=== PATIENT | male | born 1935 | race Caucasian/White ===

== ENCOUNTER 2017-02-22 09:17 | Inpatient (IN) | payer MEDICARE, OTHER, MEDICAID ==
[~2017-02-22] VITALS: Ht 167.6 cm; Wt 65.6 kg
[~2017-02-22 09:17] MED LIST: /QUET25TA OR; /QUET25TA PO; ACET500C PO; ARIC10TA PO; ARIC1TAB2 PO; ASPI1TAB PO; ASPI81TA21 PO; ASPI81TA85 PO; CETI10TA PO; D31000TA PO; DEPA250T2 PO; DESYREL PO; DILT120C82 PO; DILT120T PO; DIVA125C5 PO; DIVA500T3 PO; DONETAB6 PO; DULC5TAB PO; FINA5TAB2 PO; FISH1000 PO; FOLI1TAB4 PO; FOLI1TAB86 PO; KLOR20TA PO; LAMI25TA PO; LAMO25CH PO; LAMO25TA2 PO; LASI40TA PO; LAXA5TAB PO; MYLI40DR PO; NAPR500T2 PO; NIAC500T44 PO; NIAC500T5 PO; OMEP20CA3 PO; PRIL20CA9 PO; SERO1TAB3 PO; SERT-138 PO; SIME80CH PO; SIME80TA PO; SYNT25TA PO; TRAZ50TA11 PO; TRAZ50TA2 PO; TRIAMCINOLONE TOP; TYLE325T5 PO; XANA0.25 PO; XANA0.5T PO; ZYRT10CA PO; [UNRECOGNIZED DRUG - OTHER] TOP
[2017-02-22 11:19] LABS: BASO % 0.5 % (0.0-1.0); EOS # 0.1 K/mm3 (0.0-0.50); EOS % 1.3 % (0.0-3.0); LARGE UNSTAINED CELL # 0.2 K/mm3 (0.0-0.4); LARGE UNSTAINED CELL % 1.8 % (0.0-4.0); LYMPH # 1.4 K/mm3 (1.5-4.5); LYMPH % 14.7 % (24.0-44.0); MEAN CORPUSCULAR HGB CONC 34.1 g/dl (32.0-36.5); MEAN CORPUSCULAR VOLUME 93.8 fl (80.0-96.0); MONO # 0.7 K/mm3 (0.0-0.8); MONO % 7.2 % (0.0-5.0); NEUTROPHILS # 6.9 K/mm3 (1.8-7.7); NEUTROPHILS % 74.5 % (36.0-66.0); PLATELET COUNT, AUTOMATED 241 k/mm3 (150-450); WHITE BLOOD COUNT 9.3 K/mm3 (4.0-10.0)
[2017-02-22 11:39] LABS: ANION GAP 6 MEQ/L (8-16); BLOOD UREA NITROGEN 25 MG/DL (7-18); CALCIUM LEVEL 8.6 MG/DL (8.8-10.2); CARBON DIOXIDE LEVEL 30 MEQ/L (21-32); CHLORIDE LEVEL 106 MEQ/L (98-107); CREATININE FOR GFR 1.04 MG/DL (0.70-1.30); GLOMERULAR FILTRATION RATE > 60.0 (>35); GLUCOSE, FASTING 77 MG/DL (83-110); POTASSIUM SERUM 4.4 MEQ/L (3.5-5.1); SODIUM LEVEL 142 MEQ/L (136-145)
[2017-02-22] MEDS ORDERED: SERO1TAB PO (13:42)
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
[2017-02-22 15:10] VITALS: BP 151/66
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
[2017-02-22] MEDS: OMEPRAZOLE 20 MG CAP PO SCH (21:27)
[2017-02-22] MEDS: QUEtiapine FUMARATE 100 MG TAB PO SCH (21:27)
[2017-02-22 22:00] VITALS: BP 133/78
[2017-02-23 06:00] VITALS: BP 133/63
[2017-02-23 06:13] LABS: MEAN CORPUSCULAR HEMOGLOBIN 32.5 pg (27.0-33.0); MEAN CORPUSCULAR HGB CONC 34.3 g/dl (32.0-36.5); MEAN CORPUSCULAR VOLUME 94.9 fl (80.0-96.0); RED CELL DISTRIBUTION WIDTH 13.1 % (11.5-14.5); WHITE BLOOD COUNT 8.4 K/mm3 (4.0-10.0)
[2017-02-23 06:29] LABS: ALBUMIN 3.1 GM/DL (3.2-5.2); ALBUMIN/GLOBULIN RATIO 0.74 (1.00-1.93); ALKALINE PHOSPHATASE 127 U/L (45-117); ALT/SGPT 19 U/L (12-78); ANION GAP 6 MEQ/L (8-16); AST/SGOT 23 U/L (15-37); BILIRUBIN,TOTAL 0.4 MG/DL (0.2-1.0); BLOOD UREA NITROGEN 19 MG/DL (7-18); CALCIUM LEVEL 8.9 MG/DL (8.8-10.2); CARBON DIOXIDE LEVEL 29 MEQ/L (21-32); CHLORIDE LEVEL 105 MEQ/L (98-107); CREATININE FOR GFR 1.04 MG/DL (0.70-1.30); GLOMERULAR FILTRATION RATE > 60.0 (>35); GLUCOSE, FASTING 84 MG/DL (83-110); POTASSIUM SERUM 4.1 MEQ/L (3.5-5.1); SODIUM LEVEL 140 MEQ/L (136-145); TOTAL PROTEIN 7.3 GM/DL (6.4-8.2)
[2017-02-23] MEDS: FOLIC ACID 1 MG TAB PO SCH (08:35)
[2017-02-23] MEDS: SERTRALINE 100 MG TAB PO SCH (08:35)
[2017-02-23] MEDS: OMEPRAZOLE 20 MG CAP PO SCH ×2 (08:35→20:47)
[2017-02-23] MEDS: VITAMIN D 1,000 INTERNATIONAL UNITS TABLET PO SCH (08:35)
[2017-02-23] MEDS: FUROSEMIDE 40 MG TAB PO SCH (08:35)
[2017-02-23] MEDS: OMEGA-3 1050MG CAPSULE PO SCH (08:35)
[2017-02-23] MEDS: ASPIRIN 81 MG ENTERIC TAB PO SCH (08:36)
[2017-02-23] MEDS: DONEPEZIL 5 MG TAB PO SCH (08:36)
[2017-02-23] MEDS: CETIRIZINE (ZyrTEC) 10 MG TAB PO SCH (08:37)
[2017-02-23] MEDS ORDERED: ENOXAPARIN 30 MG/0.3 ML SYR (J1650) SC ONE (11:00)
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
[2017-02-23 14:00] VITALS: BP 117/59
[2017-02-23] MEDS ORDERED: HALOPERIDOL 2 MG TAB PO PRN (17:00)
[2017-02-23] MEDS ORDERED: BENZTROPINE 1 MG TAB PO PRN (17:00)
[2017-02-23] MEDS ORDERED: HALOPERIDOL 5 MG/ML VIAL (J1630) As Ordered ONE (17:01)
[2017-02-23] MEDS ORDERED: HALOPERIDOL 5 MG/ML VIAL (J1630) IM ONE (17:15)
--- NOTE | 2017-02-23 18:58 | IPNPDOC ---
Text Note Date of Service The patient was seen on 02/23/17. NOTE Event Note: Around 4-5 PM in the afternoon a code Leonardo was called. Patient was found to be missing in the hospital. He was eventually found on the corner of [facility] and [facility] in front of the [facility] building, and was brought back by security to the hospital lobby. He was going to be given IM haldol by nurse in the lobby, however, a code 25 was called and he did not receive the dose then. He was then taken up back to his room by security on [address] where he is given 1 dose of 2 mg PO Haldol around 5:17 PM. Orders were placed for a sitter and for elopement precautions as well as for PRN 2 mg PO haldol q8 hours and for 1 mg IM haldol q12 hours for PRN agitation. For possible extrapyramidal side effect development, we have ordered cogentin 1 mg q8h PRN. Patient now has a sitter and seems to have calmed down. Discussed event and took advice of both Dr. Angelica Granados and Dr. Judy Pringle. Attending Note I, Dr. Granados, have discussed the management plan with Dr. Padgett, and agree with the documentation above. I have asked Dr. Judy Pringle, to assist in the case. She will further direct any other changes after this note. VS,Giovannibone, I+O VS, Fishbone, I+O Laboratory Tests 02/23/17 05:55 Red Blood Count 4.35, Mean Corpuscular Volume 94.9, Mean Corpuscular Hemoglobin 32.5, Mean Corpuscular Hemoglobin Concent 34.3, Red Cell Distribution Width 13.1 , Calcium Level 8.9, Aspartate Amino Transf (AST/SGOT) 23, Alanine Aminotransferase (ALT/SGPT) 19, Alkaline Phosphatase 127 H, Total Bilirubin 0.4 , Total Protein 7.3, Albumin 3.1 L Vital Signs Date Time Temp Pulse Resp B/P (MAP) Pulse Ox O2 Delivery O2 Flow Rate FiO2 02/23/17 14:00 97.9 78 18 117/59 (78) 94 Room Air I&O- Last 24 Hours up to 6 AM 02/23/17 06:00 Intake Total 720 ml Output Total 0 ml Balance 720 ml CROW PADGETT OGME-1 Feb 23, 2017 18:58 ANGELICA GRANADOS MD Feb 24, 2017 06:41
[2017-02-23] MEDS: QUEtiapine FUMARATE 100 MG TAB PO SCH (20:47)
[2017-02-23 22:00] VITALS: BP 110/55
[2017-02-24 06:00] VITALS: BP 137/61
[2017-02-24] MEDS: FOLIC ACID 1 MG TAB PO SCH (09:11)
[2017-02-24] MEDS: CETIRIZINE (ZyrTEC) 10 MG TAB PO SCH (09:11)
[2017-02-24] MEDS: OMEGA-3 1050MG CAPSULE PO SCH (09:11)
[2017-02-24] MEDS: OMEPRAZOLE 20 MG CAP PO SCH ×2 (09:11→20:18)
[2017-02-24] MEDS: ASPIRIN 81 MG ENTERIC TAB PO SCH (09:11)
[2017-02-24] MEDS: DOCUSATE SODIUM 100 MG CAP PO SCH ×2 (09:11→20:18)
[2017-02-24] MEDS: VITAMIN D 1,000 INTERNATIONAL UNITS TABLET PO SCH (09:11)
[2017-02-24] MEDS: FUROSEMIDE 40 MG TAB PO SCH (09:11)
[2017-02-24] MEDS: DONEPEZIL 5 MG TAB PO SCH (09:11)
[2017-02-24] MEDS: ENOXAPARIN 30 MG/0.3 ML SYR (J1650) SC SCH (09:12)
[2017-02-24] MEDS: SERTRALINE 100 MG TAB PO SCH (09:12)
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
[2017-02-24 13:20] VITALS: BP 140/70
[2017-02-24] MEDS: QUEtiapine FUMARATE 100 MG TAB PO SCH (20:18)
[2017-02-24 22:00] VITALS: BP 119/58
[2017-02-25 06:00] VITALS: BP 119/56
[2017-02-25] MEDS ORDERED: HALOPERIDOL 1 MG TAB PO ONE (09:45)
[2017-02-25] MEDS: CETIRIZINE (ZyrTEC) 10 MG TAB PO SCH (09:55)
[2017-02-25] MEDS: SERTRALINE 100 MG TAB PO SCH (09:55)
[2017-02-25] MEDS: ASPIRIN 81 MG ENTERIC TAB PO SCH (09:55)
[2017-02-25] MEDS: DOCUSATE SODIUM 100 MG CAP PO SCH ×2 (09:57→21:51)
[2017-02-25] MEDS: OMEPRAZOLE 20 MG CAP PO SCH ×2 (09:57→21:51)
[2017-02-25] MEDS: FUROSEMIDE 40 MG TAB PO SCH (09:58)
[2017-02-25] MEDS: DONEPEZIL 5 MG TAB PO SCH (09:58)
[2017-02-25] MEDS: VITAMIN D 1,000 INTERNATIONAL UNITS TABLET PO SCH (09:58)
[2017-02-25] MEDS: FOLIC ACID 1 MG TAB PO SCH (09:58)
[2017-02-25] MEDS: OMEGA-3 1050MG CAPSULE PO SCH (09:58)
[2017-02-25] MEDS: ENOXAPARIN 30 MG/0.3 ML SYR (J1650) SC SCH (09:58)
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
[2017-02-25 14:00] VITALS: BP 128/61
[2017-02-25] MEDS: QUEtiapine FUMARATE 100 MG TAB PO SCH (21:51)
[2017-02-25] MEDS: MOM 30ML SUSPENSION UDC PO PRN (21:56)
[2017-02-25 22:00] VITALS: BP 145/66
[2017-02-26 06:00] VITALS: BP 130/72
[2017-02-26] MEDS ORDERED: FLEET ENEMA PR PRN (06:45)
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
[2017-02-26] MEDS: OMEPRAZOLE 20 MG CAP PO SCH ×2 (09:51→21:00)
[2017-02-26] MEDS: SERTRALINE 100 MG TAB PO SCH (09:54)
[2017-02-26] MEDS: FOLIC ACID 1 MG TAB PO SCH (09:54)
[2017-02-26] MEDS: VITAMIN D 1,000 INTERNATIONAL UNITS TABLET PO SCH (09:54)
[2017-02-26] MEDS: ASPIRIN 81 MG ENTERIC TAB PO SCH (09:54)
[2017-02-26] MEDS: DOCUSATE SODIUM 100 MG CAP PO SCH ×2 (09:54→21:00)
[2017-02-26] MEDS: DONEPEZIL 5 MG TAB PO SCH (09:54)
[2017-02-26] MEDS: OMEGA-3 1050MG CAPSULE PO SCH (09:55)
[2017-02-26] MEDS: CETIRIZINE (ZyrTEC) 10 MG TAB PO SCH (09:55)
[2017-02-26] MEDS: FUROSEMIDE 40 MG TAB PO SCH (09:55)
[2017-02-26] MEDS: ENOXAPARIN 30 MG/0.3 ML SYR (J1650) SC SCH (09:55)
[2017-02-26] MEDS: HALOPERIDOL 5 MG/ML VIAL (J1630) IM PRN (17:51)
[2017-02-26] MEDS: QUEtiapine FUMARATE 100 MG TAB PO SCH (21:00)
[2017-02-27 05:48] LABS: MEAN CORPUSCULAR HEMOGLOBIN 31.3 pg (27.0-33.0); MEAN CORPUSCULAR HGB CONC 33.4 g/dl (32.0-36.5); MEAN CORPUSCULAR VOLUME 93.7 fl (80.0-96.0); RED CELL DISTRIBUTION WIDTH 13.4 % (11.5-14.5); WHITE BLOOD COUNT 8.3 K/mm3 (4.0-10.0)
[2017-02-27 06:00] VITALS: BP 137/71
[2017-02-27 06:04] LABS: CALCIUM LEVEL 9.5 MG/DL (8.8-10.2); CREATININE FOR GFR 1.24 MG/DL (0.70-1.30); GLOMERULAR FILTRATION RATE 59.3 (>35); POTASSIUM SERUM 4.5 MEQ/L (3.5-5.1)
[2017-02-27] MEDS: SERTRALINE 100 MG TAB PO SCH (08:02)
[2017-02-27] MEDS: OMEGA-3 1050MG CAPSULE PO SCH (08:02)
[2017-02-27] MEDS: DONEPEZIL 5 MG TAB PO SCH (08:02)
[2017-02-27] MEDS: MOM 30ML SUSPENSION UDC PO PRN (08:02)
[2017-02-27] MEDS: DOCUSATE SODIUM 100 MG CAP PO SCH ×2 (08:03→21:19)
[2017-02-27] MEDS: VITAMIN D 1,000 INTERNATIONAL UNITS TABLET PO SCH (08:03)
[2017-02-27] MEDS: ASPIRIN 81 MG ENTERIC TAB PO SCH (08:03)
[2017-02-27] MEDS: FUROSEMIDE 40 MG TAB PO SCH (08:03)
[2017-02-27] MEDS: CETIRIZINE (ZyrTEC) 10 MG TAB PO SCH (08:03)
[2017-02-27] MEDS: OMEPRAZOLE 20 MG CAP PO SCH ×2 (08:03→21:18)
[2017-02-27] MEDS: FOLIC ACID 1 MG TAB PO SCH (08:03)
[2017-02-27] MEDS: ENOXAPARIN 30 MG/0.3 ML SYR (J1650) SC SCH (08:04)
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
[2017-02-27] MEDS: QUEtiapine FUMARATE 100 MG TAB PO SCH (21:18)
[2017-02-27] MEDS ORDERED: IBUPROFEN 400 MG TAB PO ONE (23:30)
[2017-02-27] MEDS: HALOPERIDOL 2 MG TAB PO PRN (23:46)
[2017-02-28 06:00] VITALS: BP 126/60
[2017-02-28] MEDS: OMEPRAZOLE 20 MG CAP PO SCH ×2 (09:25→20:20)
[2017-02-28] MEDS: FOLIC ACID 1 MG TAB PO SCH (09:25)
[2017-02-28] MEDS: OMEGA-3 1050MG CAPSULE PO SCH (09:25)
[2017-02-28] MEDS: DONEPEZIL 5 MG TAB PO SCH (09:25)
[2017-02-28] MEDS: SERTRALINE 100 MG TAB PO SCH (09:25)
[2017-02-28] MEDS: ENOXAPARIN 30 MG/0.3 ML SYR (J1650) SC SCH (09:25)
[2017-02-28] MEDS: CETIRIZINE (ZyrTEC) 10 MG TAB PO SCH (09:25)
[2017-02-28] MEDS: DOCUSATE SODIUM 100 MG CAP PO SCH ×2 (09:25→20:20)
[2017-02-28] MEDS: ASPIRIN 81 MG ENTERIC TAB PO SCH (09:25)
[2017-02-28] MEDS: VITAMIN D 1,000 INTERNATIONAL UNITS TABLET PO SCH (09:26)
[2017-02-28] MEDS: FUROSEMIDE 40 MG TAB PO SCH (09:26)
[2017-02-28 14:00] VITALS: BP 140/68
[2017-02-28] MEDS: QUEtiapine FUMARATE 100 MG TAB PO SCH (20:20)
[2017-03-01 06:00] VITALS: BP 154/76
[2017-03-01] MEDS: VITAMIN D 1,000 INTERNATIONAL UNITS TABLET PO SCH (09:45)
[2017-03-01] MEDS: OMEPRAZOLE 20 MG CAP PO SCH ×2 (09:45→20:27)
[2017-03-01] MEDS: ENOXAPARIN 30 MG/0.3 ML SYR (J1650) SC SCH (09:45)
[2017-03-01] MEDS: DONEPEZIL 5 MG TAB PO SCH (09:45)
[2017-03-01] MEDS: FOLIC ACID 1 MG TAB PO SCH (09:45)
[2017-03-01] MEDS: FUROSEMIDE 40 MG TAB PO SCH (09:45)
[2017-03-01] MEDS: DOCUSATE SODIUM 100 MG CAP PO SCH ×2 (09:45→20:27)
[2017-03-01] MEDS: SERTRALINE 100 MG TAB PO SCH (09:45)
[2017-03-01] MEDS: CETIRIZINE (ZyrTEC) 10 MG TAB PO SCH (09:45)
[2017-03-01] MEDS: ASPIRIN 81 MG ENTERIC TAB PO SCH (09:45)
[2017-03-01] MEDS: OMEGA-3 1050MG CAPSULE PO SCH (09:45)
[2017-03-01] MEDS: QUEtiapine FUMARATE 100 MG TAB PO SCH (20:21)
[2017-03-01] MEDS: HALOPERIDOL 2 MG TAB PO PRN (20:21)
[2017-03-02 05:30] VITALS: BP 154/70
[2017-03-02 06:33] LABS: MEAN CORPUSCULAR HEMOGLOBIN 31.6 pg (27.0-33.0); MEAN CORPUSCULAR HGB CONC 33.2 g/dl (32.0-36.5); RED CELL DISTRIBUTION WIDTH 13.4 % (11.5-14.5); WHITE BLOOD COUNT 6.8 K/mm3 (4.0-10.0)
[2017-03-02] MEDS: HALOPERIDOL 2 MG TAB PO PRN ×2 (06:45→23:02)
[2017-03-02] MEDS: FUROSEMIDE 40 MG TAB PO SCH (10:19)
[2017-03-02] MEDS: VITAMIN D 1,000 INTERNATIONAL UNITS TABLET PO SCH (10:19)
[2017-03-02] MEDS: OMEGA-3 1050MG CAPSULE PO SCH (10:19)
[2017-03-02] MEDS: OMEPRAZOLE 20 MG CAP PO SCH ×2 (10:19→21:00)
[2017-03-02] MEDS: ENOXAPARIN 30 MG/0.3 ML SYR (J1650) SC SCH (10:19)
[2017-03-02] MEDS: ASPIRIN 81 MG ENTERIC TAB PO SCH (10:20)
[2017-03-02] MEDS: CETIRIZINE (ZyrTEC) 10 MG TAB PO SCH (10:20)
[2017-03-02] MEDS: FOLIC ACID 1 MG TAB PO SCH (10:20)
[2017-03-02] MEDS: DOCUSATE SODIUM 100 MG CAP PO SCH ×2 (10:20→21:00)
[2017-03-02] MEDS: DONEPEZIL 5 MG TAB PO SCH (10:20)
[2017-03-02] MEDS: SERTRALINE 100 MG TAB PO SCH (10:20)
[2017-03-02] MEDS: HALOPERIDOL 5 MG/ML VIAL (J1630) IM PRN ×2 (15:51→23:17)
[2017-03-02] MEDS: QUEtiapine FUMARATE 100 MG TAB PO SCH (23:02)
[2017-03-03] MEDS ORDERED: MILKSUS PO (07:05)
[2017-03-03] MEDS ORDERED: COLA100C5 PO (07:05)
[2017-03-03] MEDS ORDERED: FLEEENE4 PR (07:05)
[2017-03-03] MEDS ORDERED: HALO2TA PO (07:05)
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
[2017-03-03] MEDS: FOLIC ACID 1 MG TAB PO SCH (09:00)
[2017-03-03] MEDS: OMEPRAZOLE 20 MG CAP PO SCH ×2 (09:00→20:56)
[2017-03-03] MEDS: ENOXAPARIN 30 MG/0.3 ML SYR (J1650) SC SCH (09:00)
[2017-03-03] MEDS: VITAMIN D 1,000 INTERNATIONAL UNITS TABLET PO SCH (09:00)
[2017-03-03] MEDS: OMEGA-3 1050MG CAPSULE PO SCH (09:00)
[2017-03-03] MEDS: DOCUSATE SODIUM 100 MG CAP PO SCH ×2 (09:00→20:56)
[2017-03-03] MEDS: DONEPEZIL 5 MG TAB PO SCH (09:52)
[2017-03-03] MEDS: ASPIRIN 81 MG ENTERIC TAB PO SCH (09:52)
[2017-03-03] MEDS: SERTRALINE 100 MG TAB PO SCH (09:53)
[2017-03-03] MEDS: FUROSEMIDE 40 MG TAB PO SCH (09:53)
[2017-03-03] MEDS: CETIRIZINE (ZyrTEC) 10 MG TAB PO SCH (09:53)
[2017-03-03] MEDS: QUEtiapine FUMARATE 100 MG TAB PO SCH (20:56)
[2017-03-04 06:00] VITALS: BP 139/74
[2017-03-04] MEDS: OMEGA-3 1050MG CAPSULE PO SCH (10:43)
[2017-03-04] MEDS: DONEPEZIL 5 MG TAB PO SCH (10:44)
[2017-03-04] MEDS: ASPIRIN 81 MG ENTERIC TAB PO SCH (10:44)
[2017-03-04] MEDS: SERTRALINE 100 MG TAB PO SCH (10:44)
[2017-03-04] MEDS: CETIRIZINE (ZyrTEC) 10 MG TAB PO SCH (10:44)
[2017-03-04] MEDS: FUROSEMIDE 40 MG TAB PO SCH (10:45)
[2017-03-04] MEDS: ENOXAPARIN 30 MG/0.3 ML SYR (J1650) SC SCH (10:45)
[2017-03-04] MEDS: VITAMIN D 1,000 INTERNATIONAL UNITS TABLET PO SCH (10:45)
[2017-03-04] MEDS: FOLIC ACID 1 MG TAB PO SCH (10:45)
[2017-03-04] MEDS: DOCUSATE SODIUM 100 MG CAP PO SCH ×2 (10:45→20:00)
[2017-03-04] MEDS: OMEPRAZOLE 20 MG CAP PO SCH ×2 (10:45→20:00)
[2017-03-04 14:00] VITALS: BP 117/65
[2017-03-04] MEDS: QUEtiapine FUMARATE 100 MG TAB PO SCH (20:00)
[2017-03-05 06:00] VITALS: BP 120/67
[2017-03-05] MEDS: OMEGA-3 1050MG CAPSULE PO SCH (08:10)
[2017-03-05] MEDS: VITAMIN D 1,000 INTERNATIONAL UNITS TABLET PO SCH (08:11)
[2017-03-05] MEDS: FOLIC ACID 1 MG TAB PO SCH (08:11)
[2017-03-05] MEDS: DONEPEZIL 5 MG TAB PO SCH (08:11)
[2017-03-05] MEDS: DOCUSATE SODIUM 100 MG CAP PO SCH ×2 (08:11→20:22)
[2017-03-05] MEDS: FUROSEMIDE 40 MG TAB PO SCH (08:11)
[2017-03-05] MEDS: OMEPRAZOLE 20 MG CAP PO SCH ×2 (08:11→20:23)
[2017-03-05] MEDS: ASPIRIN 81 MG ENTERIC TAB PO SCH (08:12)
[2017-03-05] MEDS: ENOXAPARIN 30 MG/0.3 ML SYR (J1650) SC SCH (08:12)
[2017-03-05] MEDS: CETIRIZINE (ZyrTEC) 10 MG TAB PO SCH (08:12)
[2017-03-05] MEDS: SERTRALINE 100 MG TAB PO SCH (08:12)
[2017-03-05] MEDS: QUEtiapine FUMARATE 100 MG TAB PO SCH (20:23)
[2017-03-06 06:00] VITALS: BP 113/66
[2017-03-06 06:01] LABS: MEAN CORPUSCULAR HEMOGLOBIN 32.9 pg (27.0-33.0); MEAN CORPUSCULAR HGB CONC 34.9 g/dl (32.0-36.5); MEAN CORPUSCULAR VOLUME 94.5 fl (80.0-96.0); RED CELL DISTRIBUTION WIDTH 13.2 % (11.5-14.5); WHITE BLOOD COUNT 6.5 K/mm3 (4.0-10.0)
[2017-03-06 06:34] LABS: ANION GAP 4 MEQ/L (8-16); BLOOD UREA NITROGEN 30 MG/DL (7-18); CALCIUM LEVEL 9.3 MG/DL (8.8-10.2); CARBON DIOXIDE LEVEL 35 MEQ/L (21-32); CHLORIDE LEVEL 103 MEQ/L (98-107); GLOMERULAR FILTRATION RATE > 60.0 (>35); GLUCOSE, FASTING 88 MG/DL (83-110); POTASSIUM SERUM 4.1 MEQ/L (3.5-5.1); SODIUM LEVEL 142 MEQ/L (136-145)
[2017-03-06] MEDS: ENOXAPARIN 30 MG/0.3 ML SYR (J1650) SC SCH (08:09)
[2017-03-06] MEDS: FOLIC ACID 1 MG TAB PO SCH (08:09)
[2017-03-06] MEDS: VITAMIN D 1,000 INTERNATIONAL UNITS TABLET PO SCH (08:09)
[2017-03-06] MEDS: OMEGA-3 1050MG CAPSULE PO SCH (08:09)
[2017-03-06] MEDS: DOCUSATE SODIUM 100 MG CAP PO SCH ×2 (08:09→20:54)
[2017-03-06] MEDS: SERTRALINE 100 MG TAB PO SCH (08:09)
[2017-03-06] MEDS: FUROSEMIDE 40 MG TAB PO SCH (08:09)
[2017-03-06] MEDS: ASPIRIN 81 MG ENTERIC TAB PO SCH (08:10)
[2017-03-06] MEDS: DONEPEZIL 5 MG TAB PO SCH (08:10)
[2017-03-06] MEDS: CETIRIZINE (ZyrTEC) 10 MG TAB PO SCH (08:10)
[2017-03-06] MEDS: OMEPRAZOLE 20 MG CAP PO SCH ×2 (08:10→20:54)
[2017-03-06] MEDS: QUEtiapine FUMARATE 100 MG TAB PO SCH (20:54)
[2017-03-07 06:00] VITALS: BP 128/62
[2017-03-07] MEDS: DONEPEZIL 5 MG TAB PO SCH (08:03)
[2017-03-07] MEDS: CETIRIZINE (ZyrTEC) 10 MG TAB PO SCH (08:03)
[2017-03-07] MEDS: VITAMIN D 1,000 INTERNATIONAL UNITS TABLET PO SCH (08:03)
[2017-03-07] MEDS: FOLIC ACID 1 MG TAB PO SCH (08:03)
[2017-03-07] MEDS: SERTRALINE 100 MG TAB PO SCH (08:03)
[2017-03-07] MEDS: ASPIRIN 81 MG ENTERIC TAB PO SCH (08:03)
[2017-03-07] MEDS: DOCUSATE SODIUM 100 MG CAP PO SCH ×2 (08:03→21:00)
[2017-03-07] MEDS: ENOXAPARIN 30 MG/0.3 ML SYR (J1650) SC SCH (08:03)
[2017-03-07] MEDS: FUROSEMIDE 40 MG TAB PO SCH (08:04)
[2017-03-07] MEDS: OMEPRAZOLE 20 MG CAP PO SCH ×2 (08:04→21:00)
[2017-03-07] MEDS: OMEGA-3 1050MG CAPSULE PO SCH (08:04)
[2017-03-07] MEDS: HALOPERIDOL 5 MG/ML VIAL (J1630) IM PRN (12:09)
[2017-03-07] MEDS ORDERED: LORazepam 2 MG/ML VIAL (J2060) As Ordered ONE (12:31)
[2017-03-07] MEDS ORDERED: LORazepam 2 MG/ML VIAL (J2060) IM PRN (12:45)
[2017-03-07] MEDS ORDERED: BENZ-52 PO (13:29)
[2017-03-07] MEDS ORDERED: ATIV2INJ2 IM (13:29)
[2017-03-07] MEDS: QUEtiapine FUMARATE 100 MG TAB PO SCH (21:37)
[2017-03-08 08:00] VITALS: BP 135/70
[2017-03-08] MEDS: CETIRIZINE (ZyrTEC) 10 MG TAB PO SCH (08:03)
[2017-03-08] MEDS: VITAMIN D 1,000 INTERNATIONAL UNITS TABLET PO SCH (08:03)
[2017-03-08] MEDS: DOCUSATE SODIUM 100 MG CAP PO SCH ×2 (08:03→21:00)
[2017-03-08] MEDS: OMEGA-3 1050MG CAPSULE PO SCH (08:03)
[2017-03-08] MEDS: FOLIC ACID 1 MG TAB PO SCH (08:03)
[2017-03-08] MEDS: ASPIRIN 81 MG ENTERIC TAB PO SCH (08:03)
[2017-03-08] MEDS: FUROSEMIDE 40 MG TAB PO SCH (08:04)
[2017-03-08] MEDS: DONEPEZIL 5 MG TAB PO SCH (08:04)
[2017-03-08] MEDS: SERTRALINE 100 MG TAB PO SCH (08:04)
[2017-03-08] MEDS: OMEPRAZOLE 20 MG CAP PO SCH ×2 (08:04→21:00)
[2017-03-08] MEDS: ENOXAPARIN 30 MG/0.3 ML SYR (J1650) SC SCH (08:10)
[2017-03-08] MEDS: HALOPERIDOL 2 MG TAB PO PRN ×2 (13:51→21:10)
[2017-03-08 14:00] VITALS: BP 135/89
[2017-03-08] MEDS: QUEtiapine FUMARATE 100 MG TAB PO SCH (21:00)
[2017-03-08] MEDS ORDERED: HALOPERIDOL 2 MG TAB PO ONE (23:15)
[2017-03-09 06:00] VITALS: BP 134/63
[2017-03-09 07:05] LABS: MEAN CORPUSCULAR HEMOGLOBIN 31.9 pg (27.0-33.0); MEAN CORPUSCULAR HGB CONC 33.5 g/dl (32.0-36.5); MEAN CORPUSCULAR VOLUME 95.1 fl (80.0-96.0); RED CELL DISTRIBUTION WIDTH 12.9 % (11.5-14.5); WHITE BLOOD COUNT 5.9 K/mm3 (4.0-10.0)
[2017-03-09] MEDS: FUROSEMIDE 40 MG TAB PO SCH (08:55)
[2017-03-09] MEDS: OMEPRAZOLE 20 MG CAP PO SCH ×3 (08:55→20:18)
[2017-03-09] MEDS: VITAMIN D 1,000 INTERNATIONAL UNITS TABLET PO SCH (08:55)
[2017-03-09] MEDS: ASPIRIN 81 MG ENTERIC TAB PO SCH (08:55)
[2017-03-09] MEDS: CETIRIZINE (ZyrTEC) 10 MG TAB PO SCH (08:55)
[2017-03-09] MEDS: DOCUSATE SODIUM 100 MG CAP PO SCH ×3 (08:55→20:18)
[2017-03-09] MEDS: FOLIC ACID 1 MG TAB PO SCH (08:55)
[2017-03-09] MEDS: OMEGA-3 1050MG CAPSULE PO SCH (08:55)
[2017-03-09] MEDS: SERTRALINE 100 MG TAB PO SCH (08:56)
[2017-03-09] MEDS: DONEPEZIL 5 MG TAB PO SCH (08:56)
[2017-03-09] MEDS: ENOXAPARIN 30 MG/0.3 ML SYR (J1650) SC SCH (08:56)
[2017-03-09] MEDS: HALOPERIDOL 2 MG TAB PO PRN ×2 (12:35→18:40)
[2017-03-09] MEDS: QUEtiapine FUMARATE 100 MG TAB PO SCH ×2 (20:13→20:19)
[2017-03-10 06:00] VITALS: BP 134/71
[2017-03-10] MEDS: OMEGA-3 1050MG CAPSULE PO SCH (08:38)
[2017-03-10] MEDS: ASPIRIN 81 MG ENTERIC TAB PO SCH (08:38)
[2017-03-10] MEDS: SERTRALINE 100 MG TAB PO SCH (08:38)
[2017-03-10] MEDS: CETIRIZINE (ZyrTEC) 10 MG TAB PO SCH (08:38)
[2017-03-10] MEDS: OMEPRAZOLE 20 MG CAP PO SCH ×2 (08:38→21:39)
[2017-03-10] MEDS: DOCUSATE SODIUM 100 MG CAP PO SCH (08:39)
[2017-03-10] MEDS: HALOPERIDOL 2 MG TAB PO PRN (08:39)
[2017-03-10] MEDS: DONEPEZIL 5 MG TAB PO SCH (08:39)
[2017-03-10] MEDS: VITAMIN D 1,000 INTERNATIONAL UNITS TABLET PO SCH (08:39)
[2017-03-10] MEDS: FOLIC ACID 1 MG TAB PO SCH (08:39)
[2017-03-10] MEDS: ENOXAPARIN 30 MG/0.3 ML SYR (J1650) SC SCH (08:40)
[2017-03-10] MEDS: FUROSEMIDE 40 MG TAB PO SCH (08:40)
--- NOTE | 2017-03-10 11:35 | IPNPDOC ---
Date Seen The patient was seen on 03/10/17. Progress Note SUBJECTIVE: Pateint comfortable this am , says feels constipated and having hard stool, denied any chills or fever , denied any pain , denied any nausea or vomiting . complains of difficulty in vision. still trying to leave the floor to go to [place]. OBJECTIVE PHYSICAL EXAMINATION: VITAL SIGNS: Please see below. GENERAL: awake , alert confused. HEENT: normocephalic and atraumatic, moist mucus membranes, anicteric eyes. CARDIOVASCULAR: S1, S2 normal , no rub murmur or gallop. rate regular. RESPIRATORY: bilateral vesicular breath sounds, clear to auscultation. ABDOMINAL: soft , nontender, normal bowel sounds EXTREMITIES: no edema, normal pulses. NEUROLOGICAL:No focal neuro deficits. PSYCHOLOGICAL: dementia with intermittent agitation. LABORATORY DATA: Please see below. MICROBIOLOGY: Please see below. Assessment and plan: 1. Baseline dementia with behavioral issues. Work up for causes of acute delirium like infection has been negative. continue cogentin, donepezil, seroquel, seroquel, haldol and ativan im prn. 2. History of reflux, Wilcox esophagus. Continue with proton pump inhibitor ( PPI). 3. History of cataracts. The patient is requesting to be seen by [facility] intranet specialist physician who he does not remember. 4. History of depression and anxiety, chronic. 5. Hypertension. Controlled. On diltiazem and lasix. 6. History coronary artery disease. On aspirin, fish oil, and Lasix. 7. Allergic rhinitis. On Zyrtec. 8. Deep vein thrombosis (DVT) prophylaxis with Lovenox. VS, I&O, 24H, Fishbone Vital Signs/I&O Vital Signs Date Time Temp Pulse Resp B/P (MAP) Pulse Ox O2 Delivery O2 Flow Rate FiO2 03/10/17 08:39 63 134/71 03/10/17 06:00 97.2 16 91 Room Air I&O- Last 24 Hours up to 6 AM 03/10/17 06:00 Intake Total 1560 ml Balance 1560 ml KARSON CHURCH MD Mar 10, 2017 11:34
[2017-03-10] MEDS: QUEtiapine FUMARATE 100 MG TAB PO SCH (21:39)
[2017-03-11 06:00] VITALS: BP 135/75
[2017-03-11] MEDS: SERTRALINE 100 MG TAB PO SCH (09:57)
[2017-03-11] MEDS: ENOXAPARIN 30 MG/0.3 ML SYR (J1650) SC SCH (09:57)
[2017-03-11] MEDS: OMEPRAZOLE 20 MG CAP PO SCH ×2 (09:57→20:19)
[2017-03-11] MEDS: SENOKOT S TAB PO SCH (09:57)
[2017-03-11] MEDS: CETIRIZINE (ZyrTEC) 10 MG TAB PO SCH (09:57)
[2017-03-11] MEDS: ASPIRIN 81 MG ENTERIC TAB PO SCH (10:00)
[2017-03-11] MEDS: DONEPEZIL 5 MG TAB PO SCH (10:00)
[2017-03-11] MEDS: VITAMIN D 1,000 INTERNATIONAL UNITS TABLET PO SCH (10:01)
[2017-03-11] MEDS: FUROSEMIDE 40 MG TAB PO SCH (10:01)
[2017-03-11] MEDS: FOLIC ACID 1 MG TAB PO SCH (10:01)
[2017-03-11] MEDS: OMEGA-3 1050MG CAPSULE PO SCH (10:01)
[2017-03-11] MEDS: MOM 30ML SUSPENSION UDC PO PRN (20:19)
[2017-03-11] MEDS: QUEtiapine FUMARATE 100 MG TAB PO SCH (20:19)
[2017-03-12 06:00] VITALS: BP 106/57
[2017-03-12] MEDS: SENOKOT S TAB PO SCH (09:46)
[2017-03-12] MEDS: DONEPEZIL 5 MG TAB PO SCH (09:46)
[2017-03-12] MEDS: FOLIC ACID 1 MG TAB PO SCH (09:46)
[2017-03-12] MEDS: CETIRIZINE (ZyrTEC) 10 MG TAB PO SCH (09:46)
[2017-03-12] MEDS: ASPIRIN 81 MG ENTERIC TAB PO SCH (09:46)
[2017-03-12] MEDS: SERTRALINE 100 MG TAB PO SCH (09:46)
[2017-03-12] MEDS: VITAMIN D 1,000 INTERNATIONAL UNITS TABLET PO SCH (09:46)
[2017-03-12] MEDS: FUROSEMIDE 40 MG TAB PO SCH (09:46)
[2017-03-12] MEDS: OMEGA-3 1050MG CAPSULE PO SCH (09:47)
[2017-03-12] MEDS: ENOXAPARIN 30 MG/0.3 ML SYR (J1650) SC SCH (09:47)
[2017-03-12] MEDS: OMEPRAZOLE 20 MG CAP PO SCH ×2 (09:47→21:00)
[2017-03-12] MEDS: QUEtiapine FUMARATE 100 MG TAB PO SCH (21:00)
[2017-03-13 06:00] VITALS: BP 139/67
[2017-03-13 06:38] LABS: MEAN CORPUSCULAR HGB CONC 33.7 g/dl (32.0-36.5); MEAN CORPUSCULAR VOLUME 94.9 fl (80.0-96.0); RED CELL DISTRIBUTION WIDTH 13.1 % (11.5-14.5); WHITE BLOOD COUNT 8.1 K/mm3 (4.0-10.0)
[2017-03-13 07:08] LABS: ANION GAP 6 MEQ/L (8-16); BLOOD UREA NITROGEN 28 MG/DL (7-18); CALCIUM LEVEL 9.1 MG/DL (8.8-10.2); CARBON DIOXIDE LEVEL 30 MEQ/L (21-32); CHLORIDE LEVEL 105 MEQ/L (98-107); CREATININE FOR GFR 1.08 MG/DL (0.70-1.30); GLOMERULAR FILTRATION RATE > 60.0 (>35); GLUCOSE, FASTING 93 MG/DL (83-110); POTASSIUM SERUM 3.9 MEQ/L (3.5-5.1); SODIUM LEVEL 141 MEQ/L (136-145)
[2017-03-13] MEDS: HALOPERIDOL 2 MG TAB PO PRN (08:40)
[2017-03-13] MEDS: SENOKOT S TAB PO SCH (08:41)
[2017-03-13] MEDS: ASPIRIN 81 MG ENTERIC TAB PO SCH (08:41)
[2017-03-13] MEDS: OMEPRAZOLE 20 MG CAP PO SCH ×2 (08:41→22:40)
[2017-03-13] MEDS: FOLIC ACID 1 MG TAB PO SCH (08:42)
[2017-03-13] MEDS: FUROSEMIDE 40 MG TAB PO SCH (08:42)
[2017-03-13] MEDS: VITAMIN D 1,000 INTERNATIONAL UNITS TABLET PO SCH (08:43)
[2017-03-13] MEDS: OMEGA-3 1050MG CAPSULE PO SCH (08:43)
[2017-03-13] MEDS: CETIRIZINE (ZyrTEC) 10 MG TAB PO SCH (08:43)
[2017-03-13] MEDS: SERTRALINE 100 MG TAB PO SCH (08:44)
[2017-03-13] MEDS: DONEPEZIL 5 MG TAB PO SCH (08:44)
[2017-03-13] MEDS: ENOXAPARIN 30 MG/0.3 ML SYR (J1650) SC SCH (11:15)
[2017-03-13] MEDS: HALOPERIDOL 2 MG TAB PO SCH ×2 (21:00→22:39)
[2017-03-13] MEDS: QUEtiapine FUMARATE 100 MG TAB PO SCH (22:40)
[2017-03-14 06:00] VITALS: BP 133/63
[2017-03-14] MEDS: FUROSEMIDE 40 MG TAB PO SCH (10:51)
[2017-03-14] MEDS: CETIRIZINE (ZyrTEC) 10 MG TAB PO SCH (10:51)
[2017-03-14] MEDS: SENOKOT S TAB PO SCH (10:51)
[2017-03-14] MEDS: SERTRALINE 100 MG TAB PO SCH (10:51)
[2017-03-14] MEDS: OMEPRAZOLE 20 MG CAP PO SCH ×2 (10:51→22:41)
[2017-03-14] MEDS: FOLIC ACID 1 MG TAB PO SCH (10:51)
[2017-03-14] MEDS: ASPIRIN 81 MG ENTERIC TAB PO SCH (10:52)
[2017-03-14] MEDS: OMEGA-3 1050MG CAPSULE PO SCH (10:52)
[2017-03-14] MEDS: DONEPEZIL 5 MG TAB PO SCH (10:53)
[2017-03-14] MEDS: VITAMIN D 1,000 INTERNATIONAL UNITS TABLET PO SCH (10:53)
[2017-03-14] MEDS: HALOPERIDOL 2 MG TAB PO SCH (10:54)
[2017-03-14] MEDS: ENOXAPARIN 30 MG/0.3 ML SYR (J1650) SC SCH (10:54)
[2017-03-14] MEDS: QUEtiapine FUMARATE 100 MG TAB PO SCH (22:41)
[2017-03-15 06:00] VITALS: BP 131/77
[2017-03-15] MEDS: OMEGA-3 1050MG CAPSULE PO SCH (09:58)
[2017-03-15] MEDS: CETIRIZINE (ZyrTEC) 10 MG TAB PO SCH (09:59)
[2017-03-15] MEDS: SENOKOT S TAB PO SCH (09:59)
[2017-03-15] MEDS: SERTRALINE 100 MG TAB PO SCH (09:59)
[2017-03-15] MEDS: HALOPERIDOL 2 MG TAB PO SCH ×2 (09:59→22:20)
[2017-03-15] MEDS: VITAMIN D 1,000 INTERNATIONAL UNITS TABLET PO SCH (09:59)
[2017-03-15] MEDS: DONEPEZIL 5 MG TAB PO SCH (09:59)
[2017-03-15] MEDS: OMEPRAZOLE 20 MG CAP PO SCH ×2 (09:59→22:20)
[2017-03-15] MEDS: FOLIC ACID 1 MG TAB PO SCH (10:00)
[2017-03-15] MEDS: FUROSEMIDE 40 MG TAB PO SCH (10:00)
[2017-03-15] MEDS: ENOXAPARIN 30 MG/0.3 ML SYR (J1650) SC SCH (10:00)
[2017-03-15] MEDS: ASPIRIN 81 MG ENTERIC TAB PO SCH (10:00)
--- NOTE | 2017-03-15 15:51 | REP ---
HISTORY: Myosis. COMPARISON: 06/02/2016, which showed small bilateral cystic hygromas measuring 7 mm maximal on the right and 3 mm maximal on the left. The ventricles and sulci are unchanged consistent with microvascular ischemic disease with volume loss and atrophy. 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 There is on evidence of an acute intracranial hemorrhage. There is no mass or mass effect. The suprasellar cisterns are open and unchanged. Chronic calcifications again seen in the basal ganglia and falx, status quo. There is no evidence of an acute intracranial hemorrhagic or nonhemorrhagic event. IMPRESSION: Chronic changes as described above. Consider a contrast enhanced brain CT for further evaluation. Signed by Ed Harden DO 03/15/2017 04:41 P
--- NOTE | 2017-03-15 17:32 | IPNPDOC ---
Subjective Date Seen The patient was seen on 03/15/17. Subjective Chief Complaint/HPI The patient is a 81-year-old male admitted with a reason for visit of Dementia With Behavioral Disturbance. Events since last encounter pt seen and examined, no complains but nurse notified me to of pinpoint pupil on the left side. Objective Physical Examination General Exam: Positive: No Acute Distress ENT Exam: Positive: Atraumatic, Mucous membr. moist/pink, Pharynx Normal Chest Exam: Positive: Clear to auscultation, Normal air movement Abdomen Exam: Positive: Normal bowel sounds, Soft, Negative: Tenderness, Hepatospenomegaly Extremity Exam: Positive: Normal pulses, Negative: Clubbing, Cyanosis, Edema Assessment /Plan Problems (1) Pinpoint pupils Status: Acute Problem Text: * will check Ct scan of head to rule out stroke * no other focal deficits (2) Dementia Status: Chronic Response to Treatment: Stable (3) Gait instability Status: Chronic Response to Treatment: Stable (4) Hospital admission due to social situation Status: Chronic Response to Treatment: Stable Plan/VTE VTE Prophylaxis Ordered?: Yes VS, I&O, 24H, Fishbone Vital Signs/I&O Vital Signs Date Time Temp Pulse Resp B/P (MAP) Pulse Ox O2 Delivery O2 Flow Rate FiO2 03/15/17 09:59 70 131/77 03/15/17 09:00 Room Air 03/15/17 06:00 97.2 18 92 I&O- Last 24 Hours up to 6 AM 03/15/17 06:00 Intake Total 1320 ml Balance 1320 ml KRISHNA SMITH DO Mar 15, 2017 17:32
[2017-03-15] MEDS: QUEtiapine FUMARATE 100 MG TAB PO SCH (22:20)
[2017-03-16 06:00] VITALS: BP 114/57
[2017-03-16 06:09] LABS: MEAN CORPUSCULAR HEMOGLOBIN 31.9 pg (27.0-33.0); MEAN CORPUSCULAR HGB CONC 34.1 g/dl (32.0-36.5); MEAN CORPUSCULAR VOLUME 93.6 fl (80.0-96.0); RED CELL DISTRIBUTION WIDTH 13.1 % (11.5-14.5); WHITE BLOOD COUNT 8.7 K/mm3 (4.0-10.0)
[2017-03-16] MEDS: DONEPEZIL 5 MG TAB PO SCH (08:44)
[2017-03-16] MEDS: OMEGA-3 1050MG CAPSULE PO SCH (08:44)
[2017-03-16] MEDS: VITAMIN D 1,000 INTERNATIONAL UNITS TABLET PO SCH (08:44)
[2017-03-16] MEDS: ENOXAPARIN 30 MG/0.3 ML SYR (J1650) SC SCH (08:44)
[2017-03-16] MEDS: SENOKOT S TAB PO SCH (08:45)
[2017-03-16] MEDS: FUROSEMIDE 40 MG TAB PO SCH (08:45)
[2017-03-16] MEDS: FOLIC ACID 1 MG TAB PO SCH (08:45)
[2017-03-16] MEDS: ASPIRIN 81 MG ENTERIC TAB PO SCH (08:45)
[2017-03-16] MEDS: SERTRALINE 100 MG TAB PO SCH (08:45)
[2017-03-16] MEDS: HALOPERIDOL 2 MG TAB PO SCH ×2 (08:45→21:06)
[2017-03-16] MEDS: CETIRIZINE (ZyrTEC) 10 MG TAB PO SCH (08:45)
[2017-03-16] MEDS: OMEPRAZOLE 20 MG CAP PO SCH ×2 (08:45→21:06)
[2017-03-16] MEDS: QUEtiapine FUMARATE 100 MG TAB PO SCH (21:05)
[2017-03-17 06:00] VITALS: BP 110/63
[2017-03-17] MEDS: ASPIRIN 81 MG ENTERIC TAB PO SCH (09:19)
[2017-03-17] MEDS: OMEGA-3 1050MG CAPSULE PO SCH (09:19)
[2017-03-17] MEDS: DONEPEZIL 5 MG TAB PO SCH (09:19)
[2017-03-17] MEDS: FOLIC ACID 1 MG TAB PO SCH (09:19)
[2017-03-17] MEDS: SENOKOT S TAB PO SCH (09:19)
[2017-03-17] MEDS: SERTRALINE 100 MG TAB PO SCH (09:19)
[2017-03-17] MEDS: HALOPERIDOL 2 MG TAB PO SCH ×2 (09:19→20:55)
[2017-03-17] MEDS: CETIRIZINE (ZyrTEC) 10 MG TAB PO SCH (09:20)
[2017-03-17] MEDS: FUROSEMIDE 40 MG TAB PO SCH (09:20)
[2017-03-17] MEDS: ENOXAPARIN 30 MG/0.3 ML SYR (J1650) SC SCH (09:20)
[2017-03-17] MEDS: VITAMIN D 1,000 INTERNATIONAL UNITS TABLET PO SCH (09:20)
[2017-03-17] MEDS: OMEPRAZOLE 20 MG CAP PO SCH ×2 (09:20→20:55)
[2017-03-17] MEDS: QUEtiapine FUMARATE 100 MG TAB PO SCH (20:55)
[2017-03-18 06:00] VITALS: BP 135/58
[2017-03-18] MEDS: DONEPEZIL 5 MG TAB PO SCH (08:02)
[2017-03-18] MEDS: SERTRALINE 100 MG TAB PO SCH (08:02)
[2017-03-18] MEDS: HALOPERIDOL 2 MG TAB PO SCH ×2 (08:02→20:23)
[2017-03-18] MEDS: ASPIRIN 81 MG ENTERIC TAB PO SCH (08:02)
[2017-03-18] MEDS: FOLIC ACID 1 MG TAB PO SCH (08:02)
[2017-03-18] MEDS: OMEGA-3 1050MG CAPSULE PO SCH (08:02)
[2017-03-18] MEDS: ENOXAPARIN 30 MG/0.3 ML SYR (J1650) SC SCH (08:02)
[2017-03-18] MEDS: VITAMIN D 1,000 INTERNATIONAL UNITS TABLET PO SCH (08:03)
[2017-03-18] MEDS: SENOKOT S TAB PO SCH (08:03)
[2017-03-18] MEDS: OMEPRAZOLE 20 MG CAP PO SCH ×2 (08:03→20:25)
[2017-03-18] MEDS: FUROSEMIDE 40 MG TAB PO SCH (08:03)
[2017-03-18] MEDS: CETIRIZINE (ZyrTEC) 10 MG TAB PO SCH (08:15)
[2017-03-18] MEDS: QUEtiapine FUMARATE 100 MG TAB PO SCH (20:23)
[2017-03-19 06:00] VITALS: BP 115/58
[2017-03-19] MEDS: CETIRIZINE (ZyrTEC) 10 MG TAB PO SCH (09:31)
[2017-03-19] MEDS: DONEPEZIL 5 MG TAB PO SCH (09:31)
[2017-03-19] MEDS: OMEGA-3 1050MG CAPSULE PO SCH (09:31)
[2017-03-19] MEDS: ASPIRIN 81 MG ENTERIC TAB PO SCH (09:31)
[2017-03-19] MEDS: SENOKOT S TAB PO SCH (09:32)
[2017-03-19] MEDS: FOLIC ACID 1 MG TAB PO SCH (09:32)
[2017-03-19] MEDS: FUROSEMIDE 40 MG TAB PO SCH (09:32)
[2017-03-19] MEDS: OMEPRAZOLE 20 MG CAP PO SCH ×2 (09:33→20:25)
[2017-03-19] MEDS: SERTRALINE 100 MG TAB PO SCH (09:33)
[2017-03-19] MEDS: HALOPERIDOL 2 MG TAB PO SCH ×2 (09:33→20:25)
[2017-03-19] MEDS: VITAMIN D 1,000 INTERNATIONAL UNITS TABLET PO SCH (09:33)
[2017-03-19] MEDS: ENOXAPARIN 30 MG/0.3 ML SYR (J1650) SC SCH (09:34)
[2017-03-19] MEDS: QUEtiapine FUMARATE 100 MG TAB PO SCH (20:25)
[2017-03-19 20:40] VITALS: BP 148/88
[2017-03-20 06:00] VITALS: BP 119/58
[2017-03-20 06:18] LABS: MEAN CORPUSCULAR HEMOGLOBIN 31.7 pg (27.0-33.0); MEAN CORPUSCULAR HGB CONC 33.2 g/dl (32.0-36.5); MEAN CORPUSCULAR VOLUME 95.5 fl (80.0-96.0); RED CELL DISTRIBUTION WIDTH 13.3 % (11.5-14.5); WHITE BLOOD COUNT 8.4 K/mm3 (4.0-10.0)
[2017-03-20 06:41] LABS: ANION GAP 6 MEQ/L (8-16); BLOOD UREA NITROGEN 26 MG/DL (7-18); CARBON DIOXIDE LEVEL 33 MEQ/L (21-32); CHLORIDE LEVEL 105 MEQ/L (98-107); CREATININE FOR GFR 1.16 MG/DL (0.70-1.30); GLOMERULAR FILTRATION RATE > 60.0 (>35); GLUCOSE, FASTING 84 MG/DL (83-110); POTASSIUM SERUM 4.3 MEQ/L (3.5-5.1); SODIUM LEVEL 144 MEQ/L (136-145)
[2017-03-20] MEDS: ENOXAPARIN 30 MG/0.3 ML SYR (J1650) SC SCH (09:59)
[2017-03-20] MEDS: FOLIC ACID 1 MG TAB PO SCH (10:00)
[2017-03-20] MEDS: SENOKOT S TAB PO SCH (10:00)
[2017-03-20] MEDS: DONEPEZIL 5 MG TAB PO SCH (10:00)
[2017-03-20] MEDS: FUROSEMIDE 40 MG TAB PO SCH (10:00)
[2017-03-20] MEDS: SERTRALINE 100 MG TAB PO SCH (10:00)
[2017-03-20] MEDS: OMEPRAZOLE 20 MG CAP PO SCH ×2 (10:00→20:10)
[2017-03-20] MEDS: CETIRIZINE (ZyrTEC) 10 MG TAB PO SCH (10:00)
[2017-03-20] MEDS: ASPIRIN 81 MG ENTERIC TAB PO SCH (10:00)
[2017-03-20] MEDS: VITAMIN D 1,000 INTERNATIONAL UNITS TABLET PO SCH (10:00)
[2017-03-20] MEDS: OMEGA-3 1050MG CAPSULE PO SCH (10:01)
[2017-03-20] MEDS: HALOPERIDOL 2 MG TAB PO SCH ×2 (10:09→20:10)
[2017-03-20] MEDS: QUEtiapine FUMARATE 100 MG TAB PO SCH (20:10)
[2017-03-21 06:00] VITALS: BP 101/54
[2017-03-21] MEDS: SERTRALINE 100 MG TAB PO SCH (09:50)
[2017-03-21] MEDS: OMEPRAZOLE 20 MG CAP PO SCH ×2 (09:50→20:19)
[2017-03-21] MEDS: ASPIRIN 81 MG ENTERIC TAB PO SCH (09:50)
[2017-03-21] MEDS: OMEGA-3 1050MG CAPSULE PO SCH (09:50)
[2017-03-21] MEDS: FOLIC ACID 1 MG TAB PO SCH (09:50)
[2017-03-21] MEDS: CETIRIZINE (ZyrTEC) 10 MG TAB PO SCH (09:50)
[2017-03-21] MEDS: HALOPERIDOL 2 MG TAB PO SCH ×2 (09:50→20:19)
[2017-03-21] MEDS: DONEPEZIL 5 MG TAB PO SCH (09:50)
[2017-03-21] MEDS: FUROSEMIDE 40 MG TAB PO SCH (09:50)
[2017-03-21] MEDS: SENOKOT S TAB PO SCH (09:50)
[2017-03-21] MEDS: ENOXAPARIN 30 MG/0.3 ML SYR (J1650) SC SCH (09:53)
[2017-03-21] MEDS: VITAMIN D 1,000 INTERNATIONAL UNITS TABLET PO SCH (09:53)
--- NOTE | 2017-03-21 13:28 | IPNPDOC ---
Subjective Date Seen The patient was seen on 03/21/17. Subjective Chief Complaint/HPI The patient is a 81-year-old male admitted with a reason for visit of Dementia With Behavioral Disturbance. General: Denies: Chills, Night Sweats Constitutional: Denies: Chills, Fever Eyes: Denies: Pain ENT: Denies: Head Aches, Ear Pain Skin: Denies: Rash, Lesions Pulmonary: Denies: Dyspnea, Cough Cardiovascular: Denies: Chest Pain, Palpitations Gastrointestinal: Denies: Nausea, Vomiting Genitourinary: Denies: Dysuria, Frequency Hematologic: Denies: Bruising, Bleeding Excessively Objective Physical Examination General Exam: Positive: Cooperative, No Acute Distress ENT Exam: Positive: Atraumatic, Mucous membr. moist/pink, Pharynx Normal Chest Exam: Positive: Clear to auscultation, Normal air movement Heart Exam: Positive: Rate Normal, Normal S1, Normal S2 Abdomen Exam: Positive: Normal bowel sounds, Soft, Negative: Tenderness, Hepatospenomegaly Extremity Exam: Positive: Normal pulses, Negative: Clubbing, Cyanosis, Edema Assessment /Plan Plan/VTE VTE Prophylaxis Ordered?: Yes Plan Baseline dementia with behavioral issues. No reversible infectious/neurologic/metabolic etiology noted Continue cogentin, donepezil, sertraline, seroquel, haldol and ativan History of reflux, Wilcox esophagus Continue with proton pump inhibitor (PPI). History of depression and anxiety, chronic. Cont meds as noted above Hypertension, stable Cont diltiazem and lasix. History coronary artery disease On aspirin, fish oil, and Lasix. Not on BB, Statin?--Will defer this to PCP, outpatient work up Allergic rhinitis Cont Zyrtec. Deep vein thrombosis (DVT) prophylaxis Cont Lovenox. Disposition-we will follow up with PFS regarding further delineation of disposition. VS, I&O, 24H, Fishbone Vital Signs/I&O Vital Signs Date Time Temp Pulse Resp B/P (MAP) Pulse Ox O2 Delivery O2 Flow Rate FiO2 03/21/17 10:00 Room Air 03/21/17 09:53 68 118/64 03/21/17 06:00 98.0 20 95 I&O- Last 24 Hours up to 6 AM 03/21/17 06:00 Intake Total 660 ml Output Total 0 ml Balance 660 ml CROW KEY MD Mar 21, 2017 13:28
[2017-03-21] MEDS: QUEtiapine FUMARATE 100 MG TAB PO SCH (20:19)
[2017-03-22 06:00] VITALS: BP 110/60
[2017-03-22] MEDS: FOLIC ACID 1 MG TAB PO SCH (09:28)
[2017-03-22] MEDS: VITAMIN D 1,000 INTERNATIONAL UNITS TABLET PO SCH (09:28)
[2017-03-22] MEDS: ASPIRIN 81 MG ENTERIC TAB PO SCH (09:28)
[2017-03-22] MEDS: FUROSEMIDE 40 MG TAB PO SCH (09:28)
[2017-03-22] MEDS: OMEGA-3 1050MG CAPSULE PO SCH (09:28)
[2017-03-22] MEDS: CETIRIZINE (ZyrTEC) 10 MG TAB PO SCH (09:28)
[2017-03-22] MEDS: SERTRALINE 100 MG TAB PO SCH (09:28)
[2017-03-22] MEDS: DONEPEZIL 5 MG TAB PO SCH (09:28)
[2017-03-22] MEDS: HALOPERIDOL 2 MG TAB PO SCH ×2 (09:28→20:26)
[2017-03-22] MEDS: OMEPRAZOLE 20 MG CAP PO SCH ×2 (09:28→20:26)
[2017-03-22] MEDS: SENOKOT S TAB PO SCH (09:29)
[2017-03-22] MEDS: ENOXAPARIN 30 MG/0.3 ML SYR (J1650) SC SCH (09:29)
[2017-03-22] MEDS: QUEtiapine FUMARATE 100 MG TAB PO SCH (20:26)
[2017-03-23 05:59] LABS: MEAN CORPUSCULAR HEMOGLOBIN 32.2 pg (27.0-33.0); MEAN CORPUSCULAR HGB CONC 34.7 g/dl (32.0-36.5); MEAN CORPUSCULAR VOLUME 92.9 fl (80.0-96.0); RED CELL DISTRIBUTION WIDTH 13.1 % (11.5-14.5); WHITE BLOOD COUNT 7.6 K/mm3 (4.0-10.0)
[2017-03-23 06:00] VITALS: BP 118/65
[2017-03-23] MEDS: OMEGA-3 1050MG CAPSULE PO SCH (08:39)
[2017-03-23] MEDS: SENOKOT S TAB PO SCH (08:39)
[2017-03-23] MEDS: FUROSEMIDE 40 MG TAB PO SCH (08:39)
[2017-03-23] MEDS: HALOPERIDOL 2 MG TAB PO SCH ×2 (08:39→20:22)
[2017-03-23] MEDS: OMEPRAZOLE 20 MG CAP PO SCH ×2 (08:40→20:22)
[2017-03-23] MEDS: SERTRALINE 100 MG TAB PO SCH (08:40)
[2017-03-23] MEDS: ASPIRIN 81 MG ENTERIC TAB PO SCH (08:40)
[2017-03-23] MEDS: VITAMIN D 1,000 INTERNATIONAL UNITS TABLET PO SCH (08:40)
[2017-03-23] MEDS: FOLIC ACID 1 MG TAB PO SCH (08:40)
[2017-03-23] MEDS: DONEPEZIL 5 MG TAB PO SCH (08:40)
[2017-03-23] MEDS: CETIRIZINE (ZyrTEC) 10 MG TAB PO SCH (08:40)
[2017-03-23] MEDS: ENOXAPARIN 30 MG/0.3 ML SYR (J1650) SC SCH (08:41)
[2017-03-23] MEDS: HALOPERIDOL 2 MG TAB PO PRN (15:42)
[2017-03-23] MEDS: QUEtiapine FUMARATE 100 MG TAB PO SCH (20:22)
[2017-03-24 06:00] VITALS: BP 131/64
[2017-03-24] MEDS: SERTRALINE 100 MG TAB PO SCH (08:44)
[2017-03-24] MEDS: DONEPEZIL 5 MG TAB PO SCH (08:44)
[2017-03-24] MEDS: VITAMIN D 1,000 INTERNATIONAL UNITS TABLET PO SCH (08:44)
[2017-03-24] MEDS: ASPIRIN 81 MG ENTERIC TAB PO SCH (08:44)
[2017-03-24] MEDS: FOLIC ACID 1 MG TAB PO SCH (08:44)
[2017-03-24] MEDS: OMEPRAZOLE 20 MG CAP PO SCH ×2 (08:44→20:53)
[2017-03-24] MEDS: CETIRIZINE (ZyrTEC) 10 MG TAB PO SCH (08:44)
[2017-03-24] MEDS: SENOKOT S TAB PO SCH (08:44)
[2017-03-24] MEDS: OMEGA-3 1050MG CAPSULE PO SCH (08:44)
[2017-03-24] MEDS: FUROSEMIDE 40 MG TAB PO SCH (08:45)
[2017-03-24] MEDS: HALOPERIDOL 2 MG TAB PO SCH ×2 (08:45→20:54)
[2017-03-24] MEDS: ENOXAPARIN 30 MG/0.3 ML SYR (J1650) SC SCH (08:45)
[2017-03-24] MEDS: QUEtiapine FUMARATE 100 MG TAB PO SCH (20:54)
[2017-03-25 06:30] VITALS: BP 126/58
[2017-03-25] MEDS: SENOKOT S TAB PO SCH (08:20)
[2017-03-25] MEDS: HALOPERIDOL 2 MG TAB PO SCH ×2 (08:20→20:13)
[2017-03-25] MEDS: OMEPRAZOLE 20 MG CAP PO SCH ×2 (08:21→20:12)
[2017-03-25] MEDS: FOLIC ACID 1 MG TAB PO SCH (08:21)
[2017-03-25] MEDS: OMEGA-3 1050MG CAPSULE PO SCH (08:21)
[2017-03-25] MEDS: ASPIRIN 81 MG ENTERIC TAB PO SCH (08:21)
[2017-03-25] MEDS: FUROSEMIDE 40 MG TAB PO SCH (08:21)
[2017-03-25] MEDS: DONEPEZIL 5 MG TAB PO SCH (08:21)
[2017-03-25] MEDS: SERTRALINE 100 MG TAB PO SCH (08:21)
[2017-03-25] MEDS: CETIRIZINE (ZyrTEC) 10 MG TAB PO SCH (08:21)
[2017-03-25] MEDS: VITAMIN D 1,000 INTERNATIONAL UNITS TABLET PO SCH (08:21)
[2017-03-25] MEDS: ENOXAPARIN 30 MG/0.3 ML SYR (J1650) SC SCH (08:22)
[2017-03-25] MEDS: MOM 30ML SUSPENSION UDC PO PRN (10:56)
[2017-03-25] MEDS: QUEtiapine FUMARATE 100 MG TAB PO SCH (20:12)
[2017-03-25] MEDS: POLYVINYL ALCOHOL OPHTH SOLN 15 ML(LIQUITEARS) OU PRN (21:25)
[2017-03-26 06:00] VITALS: BP 124/65
[2017-03-26] MEDS: HALOPERIDOL 2 MG TAB PO SCH ×2 (08:06→20:46)
[2017-03-26] MEDS: ASPIRIN 81 MG ENTERIC TAB PO SCH (08:07)
[2017-03-26] MEDS: FOLIC ACID 1 MG TAB PO SCH (08:07)
[2017-03-26] MEDS: OMEGA-3 1050MG CAPSULE PO SCH (08:07)
[2017-03-26] MEDS: OMEPRAZOLE 20 MG CAP PO SCH ×2 (08:07→20:46)
[2017-03-26] MEDS: VITAMIN D 1,000 INTERNATIONAL UNITS TABLET PO SCH (08:07)
[2017-03-26] MEDS: SERTRALINE 100 MG TAB PO SCH (08:07)
[2017-03-26] MEDS: FUROSEMIDE 40 MG TAB PO SCH (08:07)
[2017-03-26] MEDS: DONEPEZIL 5 MG TAB PO SCH (08:07)
[2017-03-26] MEDS: CETIRIZINE (ZyrTEC) 10 MG TAB PO SCH (08:07)
[2017-03-26] MEDS: SENOKOT S TAB PO SCH (08:08)
[2017-03-26] MEDS: ENOXAPARIN 30 MG/0.3 ML SYR (J1650) SC SCH (08:08)
[2017-03-26] MEDS: QUEtiapine FUMARATE 100 MG TAB PO SCH (20:46)
[2017-03-27 06:00] VITALS: BP 125/61
[2017-03-27] MEDS: VITAMIN D 1,000 INTERNATIONAL UNITS TABLET PO SCH (08:15)
[2017-03-27] MEDS: FOLIC ACID 1 MG TAB PO SCH (08:15)
[2017-03-27] MEDS: CETIRIZINE (ZyrTEC) 10 MG TAB PO SCH (08:15)
[2017-03-27] MEDS: DONEPEZIL 5 MG TAB PO SCH (08:15)
[2017-03-27] MEDS: FUROSEMIDE 40 MG TAB PO SCH (08:15)
[2017-03-27] MEDS: SERTRALINE 100 MG TAB PO SCH (08:16)
[2017-03-27] MEDS: HALOPERIDOL 2 MG TAB PO SCH ×2 (08:16→21:27)
[2017-03-27] MEDS: OMEGA-3 1050MG CAPSULE PO SCH (08:16)
[2017-03-27] MEDS: OMEPRAZOLE 20 MG CAP PO SCH ×2 (08:16→21:27)
[2017-03-27] MEDS: ASPIRIN 81 MG ENTERIC TAB PO SCH (08:16)
[2017-03-27] MEDS: ENOXAPARIN 30 MG/0.3 ML SYR (J1650) SC SCH (08:16)
[2017-03-27] MEDS: SENOKOT S TAB PO SCH (08:16)
[2017-03-27] MEDS: QUEtiapine FUMARATE 100 MG TAB PO SCH (21:27)
[2017-03-28 06:00] VITALS: BP 142/66
[2017-03-28] MEDS: SERTRALINE 100 MG TAB PO SCH (08:40)
[2017-03-28] MEDS: VITAMIN D 1,000 INTERNATIONAL UNITS TABLET PO SCH (08:40)
[2017-03-28] MEDS: SENOKOT S TAB PO SCH (08:40)
[2017-03-28] MEDS: CETIRIZINE (ZyrTEC) 10 MG TAB PO SCH (08:40)
[2017-03-28] MEDS: FOLIC ACID 1 MG TAB PO SCH (08:40)
[2017-03-28] MEDS: HALOPERIDOL 2 MG TAB PO SCH ×2 (08:40→20:27)
[2017-03-28] MEDS: OMEGA-3 1050MG CAPSULE PO SCH (08:40)
[2017-03-28] MEDS: DONEPEZIL 5 MG TAB PO SCH (08:41)
[2017-03-28] MEDS: ASPIRIN 81 MG ENTERIC TAB PO SCH (08:41)
[2017-03-28] MEDS: FUROSEMIDE 40 MG TAB PO SCH (08:41)
[2017-03-28] MEDS: OMEPRAZOLE 20 MG CAP PO SCH ×2 (08:41→20:27)
[2017-03-28] MEDS: ENOXAPARIN 30 MG/0.3 ML SYR (J1650) SC SCH (08:42)
[2017-03-28] MEDS: QUEtiapine FUMARATE 100 MG TAB PO SCH (20:27)
[2017-03-29 06:00] VITALS: BP 141/72
[2017-03-29] MEDS: VITAMIN D 1,000 INTERNATIONAL UNITS TABLET PO SCH (09:52)
[2017-03-29] MEDS: ASPIRIN 81 MG ENTERIC TAB PO SCH (09:52)
[2017-03-29] MEDS: SERTRALINE 100 MG TAB PO SCH (09:52)
[2017-03-29] MEDS: OMEPRAZOLE 20 MG CAP PO SCH ×2 (09:52→21:49)
[2017-03-29] MEDS: FUROSEMIDE 40 MG TAB PO SCH (09:52)
[2017-03-29] MEDS: SENOKOT S TAB PO SCH (09:52)
[2017-03-29] MEDS: OMEGA-3 1050MG CAPSULE PO SCH (09:52)
[2017-03-29] MEDS: CETIRIZINE (ZyrTEC) 10 MG TAB PO SCH (09:52)
[2017-03-29] MEDS: DONEPEZIL 5 MG TAB PO SCH (09:52)
[2017-03-29] MEDS: FOLIC ACID 1 MG TAB PO SCH (09:52)
[2017-03-29] MEDS: HALOPERIDOL 2 MG TAB PO SCH ×2 (09:53→21:49)
[2017-03-29] MEDS: ENOXAPARIN 30 MG/0.3 ML SYR (J1650) SC SCH (09:53)
[2017-03-29] MEDS: QUEtiapine FUMARATE 100 MG TAB PO SCH (21:49)
[2017-03-30 06:00] VITALS: BP 125/60
[2017-03-30] MEDS: OMEPRAZOLE 20 MG CAP PO SCH ×2 (08:51→20:00)
[2017-03-30] MEDS: SERTRALINE 100 MG TAB PO SCH (08:51)
[2017-03-30] MEDS: ASPIRIN 81 MG ENTERIC TAB PO SCH (08:51)
[2017-03-30] MEDS: SENOKOT S TAB PO SCH (08:51)
[2017-03-30] MEDS: FOLIC ACID 1 MG TAB PO SCH (08:51)
[2017-03-30] MEDS: HALOPERIDOL 2 MG TAB PO SCH ×2 (08:51→20:00)
[2017-03-30] MEDS: FUROSEMIDE 40 MG TAB PO SCH (08:51)
[2017-03-30] MEDS: CETIRIZINE (ZyrTEC) 10 MG TAB PO SCH (08:51)
[2017-03-30] MEDS: OMEGA-3 1050MG CAPSULE PO SCH (08:51)
[2017-03-30] MEDS: VITAMIN D 1,000 INTERNATIONAL UNITS TABLET PO SCH (08:51)
[2017-03-30] MEDS: DONEPEZIL 5 MG TAB PO SCH (08:51)
[2017-03-30] MEDS: ENOXAPARIN 30 MG/0.3 ML SYR (J1650) SC SCH (08:52)
[2017-03-30] MEDS: QUEtiapine FUMARATE 100 MG TAB PO SCH (20:00)
[2017-03-31 06:00] VITALS: BP 133/64
[2017-03-31] MEDS: FOLIC ACID 1 MG TAB PO SCH (09:34)
[2017-03-31] MEDS: VITAMIN D 1,000 INTERNATIONAL UNITS TABLET PO SCH (09:34)
[2017-03-31] MEDS: ENOXAPARIN 30 MG/0.3 ML SYR (J1650) SC SCH (09:34)
[2017-03-31] MEDS: ASPIRIN 81 MG ENTERIC TAB PO SCH (09:34)
[2017-03-31] MEDS: OMEPRAZOLE 20 MG CAP PO SCH ×2 (09:34→21:22)
[2017-03-31] MEDS: OMEGA-3 1050MG CAPSULE PO SCH (09:34)
[2017-03-31] MEDS: DONEPEZIL 5 MG TAB PO SCH (09:34)
[2017-03-31] MEDS: CETIRIZINE (ZyrTEC) 10 MG TAB PO SCH (09:34)
[2017-03-31] MEDS: SENOKOT S TAB PO SCH (09:35)
[2017-03-31] MEDS: SERTRALINE 100 MG TAB PO SCH (09:35)
[2017-03-31] MEDS: FUROSEMIDE 40 MG TAB PO SCH (09:35)
[2017-03-31] MEDS: HALOPERIDOL 2 MG TAB PO SCH ×2 (09:35→21:22)
[2017-03-31] MEDS: QUEtiapine FUMARATE 100 MG TAB PO SCH (21:22)
[2017-04-01 06:00] VITALS: BP 128/65
[2017-04-01] MEDS: HALOPERIDOL 2 MG TAB PO SCH ×2 (08:35→20:20)
[2017-04-01] MEDS: VITAMIN D 1,000 INTERNATIONAL UNITS TABLET PO SCH (08:35)
[2017-04-01] MEDS: CETIRIZINE (ZyrTEC) 10 MG TAB PO SCH (08:35)
[2017-04-01] MEDS: OMEGA-3 1050MG CAPSULE PO SCH (08:35)
[2017-04-01] MEDS: OMEPRAZOLE 20 MG CAP PO SCH ×2 (08:35→20:20)
[2017-04-01] MEDS: SENOKOT S TAB PO SCH (08:35)
[2017-04-01] MEDS: SERTRALINE 100 MG TAB PO SCH (08:35)
[2017-04-01] MEDS: DONEPEZIL 5 MG TAB PO SCH (08:35)
[2017-04-01] MEDS: FOLIC ACID 1 MG TAB PO SCH (08:35)
[2017-04-01] MEDS: ASPIRIN 81 MG ENTERIC TAB PO SCH (08:35)
[2017-04-01] MEDS: ENOXAPARIN 30 MG/0.3 ML SYR (J1650) SC SCH (08:36)
[2017-04-01] MEDS: FUROSEMIDE 40 MG TAB PO SCH (08:36)
[2017-04-01 16:06] LABS: MEAN CORPUSCULAR HEMOGLOBIN 32.3 pg (27.0-33.0); MEAN CORPUSCULAR HGB CONC 34.5 g/dl (32.0-36.5); MEAN CORPUSCULAR VOLUME 93.5 fl (80.0-96.0); RED CELL DISTRIBUTION WIDTH 13.1 % (11.5-14.5)
[2017-04-01 16:31] LABS: ANION GAP 8 MEQ/L (8-16); BLOOD UREA NITROGEN 23 MG/DL (7-18); CALCIUM LEVEL 9.1 MG/DL (8.8-10.2); CARBON DIOXIDE LEVEL 32 MEQ/L (21-32); CHLORIDE LEVEL 102 MEQ/L (98-107); CREATININE FOR GFR 1.17 MG/DL (0.70-1.30); GLOMERULAR FILTRATION RATE > 60.0 (>35); GLUCOSE, FASTING 84 MG/DL (83-110); POTASSIUM SERUM 4.3 MEQ/L (3.5-5.1); SODIUM LEVEL 142 MEQ/L (136-145)
--- NOTE | 2017-04-01 17:31 | IPN ---
DATE: 04/01/2017 SUBJECTIVE: The patient is seen and examined in the room today. The patient is resting comfortably in bed without any acute complaint or acute changes. The patient has had good oral intake. No issue with bowel movement or urination. OBJECTIVE: VITAL SIGNS: Temperature is 98, pulse is 59, respirations 18, blood pressure 127/65, pulse oximetry 92% on room air. GENERAL: No sign of acute distress. Patient is alert and awake. The patient is oriented, able to answer questions. HEENT: Normocephalic, atraumatic. Extraocular motor grossly intact. CARDIOVASCULAR: Positive S1, S2. Regular rate. LUNGS: Clear to auscultation bilaterally. ABDOMEN: Soft, nontender, nondistended. Bowel sounds present. EXTREMITIES: No edema. No sign of cyanosis. LABORATORY DATA: WBC 6, hemoglobin 14.9, hematocrit 43, platelet count 223. Sodium is 142, potassium 4.3, chloride 102, carbon dioxide 32, BUN 23, creatinine 1.17, GFR greater than 60, fasting glucose 84, calcium 9.1. ASSESSMENT AND PLAN: 1. Baseline dementia with behavioral issue. The patient's mental behavioral issue has been resolved. Will continue Cogentin ,donepezil, sertraline, Seroquel, Haldol and Ativan. 2. History of reflux disease and Wilcox's esophagus. Continue proton pump inhibitor (PPI). 3. History of depression and anxiety. Continue current medications. 4. Hypertension, stable. On Lasix and diltiazem. 5. History of coronary artery disease. On aspirin. 6. Allergic rhinitis. On Zyrtec. 7. Deep venous thrombosis (DVT) prophylaxis. On Lovenox. DISPOSITION: Currently the patient is still waiting for the insurance approval for placement.
[2017-04-01] MEDS: QUEtiapine FUMARATE 100 MG TAB PO SCH (20:20)
[2017-04-02 06:00] VITALS: BP 120/66
[2017-04-02] MEDS: VITAMIN D 1,000 INTERNATIONAL UNITS TABLET PO SCH (09:40)
[2017-04-02] MEDS: OMEGA-3 1050MG CAPSULE PO SCH (09:40)
[2017-04-02] MEDS: ASPIRIN 81 MG ENTERIC TAB PO SCH (09:40)
[2017-04-02] MEDS: SERTRALINE 100 MG TAB PO SCH (09:40)
[2017-04-02] MEDS: CETIRIZINE (ZyrTEC) 10 MG TAB PO SCH (09:40)
[2017-04-02] MEDS: SENOKOT S TAB PO SCH (09:40)
[2017-04-02] MEDS: FOLIC ACID 1 MG TAB PO SCH (09:40)
[2017-04-02] MEDS: HALOPERIDOL 2 MG TAB PO SCH ×2 (09:40→21:00)
[2017-04-02] MEDS: OMEPRAZOLE 20 MG CAP PO SCH ×2 (09:41→21:00)
[2017-04-02] MEDS: ENOXAPARIN 30 MG/0.3 ML SYR (J1650) SC SCH (09:41)
[2017-04-02] MEDS: DONEPEZIL 5 MG TAB PO SCH (09:41)
[2017-04-02] MEDS: FUROSEMIDE 40 MG TAB PO SCH (09:41)
[2017-04-02] MEDS: QUEtiapine FUMARATE 100 MG TAB PO SCH (21:00)
[2017-04-03 06:00] VITALS: BP 118/67
[2017-04-03] MEDS: SENOKOT S TAB PO SCH (09:14)
[2017-04-03] MEDS: OMEGA-3 1050MG CAPSULE PO SCH (09:14)
[2017-04-03] MEDS: CETIRIZINE (ZyrTEC) 10 MG TAB PO SCH (09:14)
[2017-04-03] MEDS: HALOPERIDOL 2 MG TAB PO SCH ×2 (09:14→20:34)
[2017-04-03] MEDS: ASPIRIN 81 MG ENTERIC TAB PO SCH (09:14)
[2017-04-03] MEDS: FOLIC ACID 1 MG TAB PO SCH (09:15)
[2017-04-03] MEDS: SERTRALINE 100 MG TAB PO SCH (09:15)
[2017-04-03] MEDS: OMEPRAZOLE 20 MG CAP PO SCH ×2 (09:15→20:34)
[2017-04-03] MEDS: DONEPEZIL 5 MG TAB PO SCH (09:15)
[2017-04-03] MEDS: VITAMIN D 1,000 INTERNATIONAL UNITS TABLET PO SCH (09:15)
[2017-04-03] MEDS: FUROSEMIDE 40 MG TAB PO SCH (09:15)
[2017-04-03] MEDS: ENOXAPARIN 30 MG/0.3 ML SYR (J1650) SC SCH (09:16)
[2017-04-03] MEDS: QUEtiapine FUMARATE 100 MG TAB PO SCH (20:34)
[2017-04-04 06:00] VITALS: BP 114/61
[2017-04-04] MEDS: ENOXAPARIN 30 MG/0.3 ML SYR (J1650) SC SCH (08:53)
[2017-04-04] MEDS: FOLIC ACID 1 MG TAB PO SCH (08:53)
[2017-04-04] MEDS: CETIRIZINE (ZyrTEC) 10 MG TAB PO SCH (08:53)
[2017-04-04] MEDS: OMEPRAZOLE 20 MG CAP PO SCH ×2 (08:53→20:11)
[2017-04-04] MEDS: DONEPEZIL 5 MG TAB PO SCH (08:53)
[2017-04-04] MEDS: SENOKOT S TAB PO SCH (08:53)
[2017-04-04] MEDS: SERTRALINE 100 MG TAB PO SCH (08:53)
[2017-04-04] MEDS: ASPIRIN 81 MG ENTERIC TAB PO SCH (08:53)
[2017-04-04] MEDS: OMEGA-3 1050MG CAPSULE PO SCH (08:54)
[2017-04-04] MEDS: FUROSEMIDE 40 MG TAB PO SCH (08:54)
[2017-04-04] MEDS: VITAMIN D 1,000 INTERNATIONAL UNITS TABLET PO SCH (08:54)
[2017-04-04] MEDS: HALOPERIDOL 2 MG TAB PO SCH ×2 (08:55→20:11)
[2017-04-04] MEDS: QUEtiapine FUMARATE 100 MG TAB PO SCH (20:11)
[2017-04-05 06:00] VITALS: BP 124/64
[2017-04-05] MEDS: CETIRIZINE (ZyrTEC) 10 MG TAB PO SCH (08:47)
[2017-04-05] MEDS: SENOKOT S TAB PO SCH (08:47)
[2017-04-05] MEDS: FOLIC ACID 1 MG TAB PO SCH (08:47)
[2017-04-05] MEDS: HALOPERIDOL 2 MG TAB PO SCH ×2 (08:47→20:43)
[2017-04-05] MEDS: VITAMIN D 1,000 INTERNATIONAL UNITS TABLET PO SCH (08:48)
[2017-04-05] MEDS: FUROSEMIDE 40 MG TAB PO SCH (08:48)
[2017-04-05] MEDS: OMEPRAZOLE 20 MG CAP PO SCH ×2 (08:48→20:43)
[2017-04-05] MEDS: OMEGA-3 1050MG CAPSULE PO SCH (08:48)
[2017-04-05] MEDS: SERTRALINE 100 MG TAB PO SCH (08:48)
[2017-04-05] MEDS: DONEPEZIL 5 MG TAB PO SCH (08:48)
[2017-04-05] MEDS: ASPIRIN 81 MG ENTERIC TAB PO SCH (08:48)
[2017-04-05] MEDS: ENOXAPARIN 30 MG/0.3 ML SYR (J1650) SC SCH (08:49)
[2017-04-05] MEDS: QUEtiapine FUMARATE 100 MG TAB PO SCH (20:43)
[2017-04-06 06:00] VITALS: BP 132/70
[2017-04-06] MEDS: ENOXAPARIN 30 MG/0.3 ML SYR (J1650) SC SCH (10:10)
[2017-04-06] MEDS: OMEGA-3 1050MG CAPSULE PO SCH (10:13)
[2017-04-06] MEDS: SENOKOT S TAB PO SCH (10:13)
[2017-04-06] MEDS: OMEPRAZOLE 20 MG CAP PO SCH ×2 (10:13→20:17)
[2017-04-06] MEDS: VITAMIN D 1,000 INTERNATIONAL UNITS TABLET PO SCH (10:14)
[2017-04-06] MEDS: FOLIC ACID 1 MG TAB PO SCH (10:14)
[2017-04-06] MEDS: ASPIRIN 81 MG ENTERIC TAB PO SCH (10:15)
[2017-04-06] MEDS: SERTRALINE 100 MG TAB PO SCH (10:15)
[2017-04-06] MEDS: CETIRIZINE (ZyrTEC) 10 MG TAB PO SCH (10:15)
[2017-04-06] MEDS: HALOPERIDOL 2 MG TAB PO SCH ×2 (10:15→20:17)
[2017-04-06] MEDS: FUROSEMIDE 40 MG TAB PO SCH (10:16)
[2017-04-06] MEDS: DONEPEZIL 5 MG TAB PO SCH (10:16)
[2017-04-06] MEDS: QUEtiapine FUMARATE 100 MG TAB PO SCH (20:17)
[2017-04-07 06:00] VITALS: BP 136/64
[2017-04-07] MEDS: CETIRIZINE (ZyrTEC) 10 MG TAB PO SCH (09:40)
[2017-04-07] MEDS: HALOPERIDOL 2 MG TAB PO SCH ×2 (09:40→21:19)
[2017-04-07] MEDS: SERTRALINE 100 MG TAB PO SCH (09:40)
[2017-04-07] MEDS: OMEGA-3 1050MG CAPSULE PO SCH (09:40)
[2017-04-07] MEDS: SENOKOT S TAB PO SCH (09:40)
[2017-04-07] MEDS: VITAMIN D 1,000 INTERNATIONAL UNITS TABLET PO SCH (09:41)
[2017-04-07] MEDS: DONEPEZIL 5 MG TAB PO SCH (09:41)
[2017-04-07] MEDS: OMEPRAZOLE 20 MG CAP PO SCH ×2 (09:41→21:19)
[2017-04-07] MEDS: FOLIC ACID 1 MG TAB PO SCH (09:41)
[2017-04-07] MEDS: ASPIRIN 81 MG ENTERIC TAB PO SCH (09:41)
[2017-04-07] MEDS: FUROSEMIDE 40 MG TAB PO SCH (09:41)
[2017-04-07] MEDS: ENOXAPARIN 30 MG/0.3 ML SYR (J1650) SC SCH (09:42)
[2017-04-07] MEDS: QUEtiapine FUMARATE 100 MG TAB PO SCH (21:19)
[2017-04-08 06:14] LABS: ANION GAP 7 MEQ/L (8-16); BLOOD UREA NITROGEN 23 MG/DL (7-18); CALCIUM LEVEL 9.2 MG/DL (8.8-10.2); CARBON DIOXIDE LEVEL 30 MEQ/L (21-32); CHLORIDE LEVEL 104 MEQ/L (98-107); CREATININE FOR GFR 1.13 MG/DL (0.70-1.30); GLOMERULAR FILTRATION RATE > 60.0 (>35); GLUCOSE, FASTING 110 MG/DL (83-110); POTASSIUM SERUM 3.8 MEQ/L (3.5-5.1); SODIUM LEVEL 141 MEQ/L (136-145)
[2017-04-08 06:15] VITALS: BP 121/60
[2017-04-08 07:49] LABS: MEAN CORPUSCULAR HGB CONC 33.9 g/dl (32.0-36.5); MEAN CORPUSCULAR VOLUME 94.4 fl (80.0-96.0); RED CELL DISTRIBUTION WIDTH 12.9 % (11.5-14.5); WHITE BLOOD COUNT 6.8 K/mm3 (4.0-10.0)
--- NOTE | 2017-04-08 10:21 | IPNPDOC ---
Subjective Date Seen The patient was seen on 04/08/17. Subjective Chief Complaint/HPI Patient seen and examined at the bedside. Denies any acute complaints at this time. Objective Physical Examination General Exam: Positive: Cooperative, No Acute Distress ENT Exam: Positive: Atraumatic, Mucous membr. moist/pink, Pharynx Normal Chest Exam: Positive: Clear to auscultation, Normal air movement Heart Exam: Positive: Rate Normal, Normal S1, Normal S2 Abdomen Exam: Positive: Normal bowel sounds, Soft, Negative: Tenderness, Hepatospenomegaly Extremity Exam: Positive: Normal pulses, Negative: Clubbing, Cyanosis, Edema Assessment /Plan Plan/VTE VTE Prophylaxis Ordered?: Yes Plan Baseline dementia with behavioral issues. No reversible infectious/neurologic/metabolic etiology noted Continue cogentin, donepezil, sertraline, seroquel, haldol and ativan History of reflux, Wilcox esophagus Continue with proton pump inhibitor (PPI). History of depression and anxiety, chronic. Cont meds as noted above Hypertension, stable Cont diltiazem and lasix. History coronary artery disease On aspirin, fish oil, and Lasix. Not on BB, Statin?--Will defer this to PCP, outpatient work up Allergic rhinitis Cont Zyrtec. Deep vein thrombosis (DVT) prophylaxis Cont Lovenox. Disposition-we will follow up with PFS regarding further delineation of disposition. VS, I&O, 24H, Giovannibone Vital Signs/I&O Vital Signs Date Time Temp Pulse Resp B/P (MAP) Pulse Ox O2 Delivery O2 Flow Rate FiO2 04/08/17 06:15 97.9 53 17 121/60 (80) 93 Room Air I&O- Last 24 Hours up to 6 AM 04/08/17 06:00 Intake Total 480 ml Output Total 0 ml Balance 480 ml Laboratory Data 24H LABS Laboratory Tests 2 04/08/17 05:46: Anion Gap 7L, Glomerular Filtration Rate > 60.0, Blood Urea Nitrogen 23H, Creatinine 1.13, Sodium Level 141, Potassium Level 3.8, Chloride Level 104, Carbon Dioxide Level 30, Calcium Level 9.2 CBC/BMP Laboratory Tests 04/08/17 05:46 Red Blood Count 4.63, Mean Corpuscular Volume 94.4, Mean Corpuscular Hemoglobin 32.0, Mean Corpuscular Hemoglobin Concent 33.9, Red Cell Distribution Width 12.9 , Calcium Level 9.2 CROW KEY MD Apr 08, 2017 10:21
[2017-04-08] MEDS: ENOXAPARIN 30 MG/0.3 ML SYR (J1650) SC SCH (11:20)
[2017-04-08] MEDS: ASPIRIN 81 MG ENTERIC TAB PO SCH (11:21)
[2017-04-08] MEDS: FOLIC ACID 1 MG TAB PO SCH (11:21)
[2017-04-08] MEDS: VITAMIN D 1,000 INTERNATIONAL UNITS TABLET PO SCH (11:21)
[2017-04-08] MEDS: CETIRIZINE (ZyrTEC) 10 MG TAB PO SCH (11:22)
[2017-04-08] MEDS: DONEPEZIL 5 MG TAB PO SCH (11:22)
[2017-04-08] MEDS: FUROSEMIDE 40 MG TAB PO SCH (11:22)
[2017-04-08] MEDS: HALOPERIDOL 2 MG TAB PO SCH ×2 (11:23→22:00)
[2017-04-08] MEDS: SENOKOT S TAB PO SCH (11:23)
[2017-04-08] MEDS: OMEGA-3 1050MG CAPSULE PO SCH (11:24)
[2017-04-08] MEDS: OMEPRAZOLE 20 MG CAP PO SCH ×2 (11:24→22:00)
[2017-04-08] MEDS: SERTRALINE 100 MG TAB PO SCH (11:24)
[2017-04-08] MEDS: QUEtiapine FUMARATE 100 MG TAB PO SCH (22:00)
[2017-04-09 06:00] VITALS: BP 119/71
[2017-04-09] MEDS: VITAMIN D 1,000 INTERNATIONAL UNITS TABLET PO SCH (09:57)
[2017-04-09] MEDS: OMEPRAZOLE 20 MG CAP PO SCH ×2 (09:57→20:32)
[2017-04-09] MEDS: OMEGA-3 1050MG CAPSULE PO SCH (09:57)
[2017-04-09] MEDS: DONEPEZIL 5 MG TAB PO SCH (09:59)
[2017-04-09] MEDS: ASPIRIN 81 MG ENTERIC TAB PO SCH (09:59)
[2017-04-09] MEDS: HALOPERIDOL 2 MG TAB PO SCH ×2 (09:59→20:32)
[2017-04-09] MEDS: CETIRIZINE (ZyrTEC) 10 MG TAB PO SCH (09:59)
[2017-04-09] MEDS: SERTRALINE 100 MG TAB PO SCH (09:59)
[2017-04-09] MEDS: SENOKOT S TAB PO SCH (09:59)
[2017-04-09] MEDS: FOLIC ACID 1 MG TAB PO SCH (09:59)
[2017-04-09] MEDS: FUROSEMIDE 40 MG TAB PO SCH (10:00)
[2017-04-09] MEDS: ENOXAPARIN 30 MG/0.3 ML SYR (J1650) SC SCH (12:22)
[2017-04-09] MEDS: QUEtiapine FUMARATE 100 MG TAB PO SCH (20:32)
[2017-04-10 06:00] VITALS: BP 123/59
[2017-04-10] MEDS: SERTRALINE 100 MG TAB PO SCH (08:52)
[2017-04-10] MEDS: CETIRIZINE (ZyrTEC) 10 MG TAB PO SCH (08:52)
[2017-04-10] MEDS: OMEPRAZOLE 20 MG CAP PO SCH ×2 (08:52→20:19)
[2017-04-10] MEDS: OMEGA-3 1050MG CAPSULE PO SCH (08:52)
[2017-04-10] MEDS: DONEPEZIL 5 MG TAB PO SCH (08:52)
[2017-04-10] MEDS: VITAMIN D 1,000 INTERNATIONAL UNITS TABLET PO SCH (08:52)
[2017-04-10] MEDS: ENOXAPARIN 30 MG/0.3 ML SYR (J1650) SC SCH (08:52)
[2017-04-10] MEDS: ASPIRIN 81 MG ENTERIC TAB PO SCH (08:53)
[2017-04-10] MEDS: SENOKOT S TAB PO SCH (08:53)
[2017-04-10] MEDS: FOLIC ACID 1 MG TAB PO SCH (08:53)
[2017-04-10] MEDS: FUROSEMIDE 40 MG TAB PO SCH (08:53)
[2017-04-10] MEDS: HALOPERIDOL 2 MG TAB PO SCH ×2 (08:53→20:19)
[2017-04-10] MEDS: QUEtiapine FUMARATE 100 MG TAB PO SCH (20:19)
[2017-04-11 06:00] VITALS: BP 134/73
[2017-04-11] MEDS: DONEPEZIL 5 MG TAB PO SCH (08:42)
[2017-04-11] MEDS: SENOKOT S TAB PO SCH (08:42)
[2017-04-11] MEDS: FUROSEMIDE 40 MG TAB PO SCH (08:42)
[2017-04-11] MEDS: SERTRALINE 100 MG TAB PO SCH (08:42)
[2017-04-11] MEDS: HALOPERIDOL 2 MG TAB PO SCH ×2 (08:42→19:54)
[2017-04-11] MEDS: OMEGA-3 1050MG CAPSULE PO SCH (08:42)
[2017-04-11] MEDS: VITAMIN D 1,000 INTERNATIONAL UNITS TABLET PO SCH (08:42)
[2017-04-11] MEDS: OMEPRAZOLE 20 MG CAP PO SCH ×2 (08:42→19:54)
[2017-04-11] MEDS: CETIRIZINE (ZyrTEC) 10 MG TAB PO SCH (08:42)
[2017-04-11] MEDS: ASPIRIN 81 MG ENTERIC TAB PO SCH (08:42)
[2017-04-11] MEDS: FOLIC ACID 1 MG TAB PO SCH (08:43)
[2017-04-11] MEDS: ENOXAPARIN 30 MG/0.3 ML SYR (J1650) SC SCH (08:43)
[2017-04-11] MEDS: POLYVINYL ALCOHOL OPHTH SOLN 15 ML(LIQUITEARS) OU PRN (08:43)
[2017-04-11] MEDS: QUEtiapine FUMARATE 100 MG TAB PO SCH (19:54)
[2017-04-12 06:00] VITALS: BP 143/66
[2017-04-12] MEDS: ENOXAPARIN 30 MG/0.3 ML SYR (J1650) SC SCH (09:13)
[2017-04-12] MEDS: HALOPERIDOL 2 MG TAB PO SCH ×2 (09:14→20:41)
[2017-04-12] MEDS: VITAMIN D 1,000 INTERNATIONAL UNITS TABLET PO SCH (09:14)
[2017-04-12] MEDS: CETIRIZINE (ZyrTEC) 10 MG TAB PO SCH (09:14)
[2017-04-12] MEDS: FOLIC ACID 1 MG TAB PO SCH (09:14)
[2017-04-12] MEDS: OMEPRAZOLE 20 MG CAP PO SCH ×2 (09:14→20:42)
[2017-04-12] MEDS: OMEGA-3 1050MG CAPSULE PO SCH (09:14)
[2017-04-12] MEDS: ASPIRIN 81 MG ENTERIC TAB PO SCH (09:14)
[2017-04-12] MEDS: FUROSEMIDE 40 MG TAB PO SCH (09:14)
[2017-04-12] MEDS: SENOKOT S TAB PO SCH (09:15)
[2017-04-12] MEDS: SERTRALINE 100 MG TAB PO SCH (09:15)
[2017-04-12] MEDS: DONEPEZIL 5 MG TAB PO SCH (09:15)
[2017-04-12] MEDS: QUEtiapine FUMARATE 100 MG TAB PO SCH (20:41)
[2017-04-13 06:00] VITALS: BP_SYST 155
[2017-04-13] MEDS: SERTRALINE 100 MG TAB PO SCH (09:27)
[2017-04-13] MEDS: ENOXAPARIN 30 MG/0.3 ML SYR (J1650) SC SCH (09:27)
[2017-04-13] MEDS: FOLIC ACID 1 MG TAB PO SCH (09:27)
[2017-04-13] MEDS: OMEGA-3 1050MG CAPSULE PO SCH (09:28)
[2017-04-13] MEDS: SENOKOT S TAB PO SCH (09:28)
[2017-04-13] MEDS: HALOPERIDOL 2 MG TAB PO SCH ×2 (09:28→19:58)
[2017-04-13] MEDS: VITAMIN D 1,000 INTERNATIONAL UNITS TABLET PO SCH (09:28)
[2017-04-13] MEDS: DONEPEZIL 5 MG TAB PO SCH (09:28)
[2017-04-13] MEDS: CETIRIZINE (ZyrTEC) 10 MG TAB PO SCH (09:28)
[2017-04-13] MEDS: ASPIRIN 81 MG ENTERIC TAB PO SCH (09:28)
[2017-04-13] MEDS: FUROSEMIDE 40 MG TAB PO SCH (09:28)
[2017-04-13] MEDS: OMEPRAZOLE 20 MG CAP PO SCH ×2 (09:28→19:58)
[2017-04-13] MEDS: QUEtiapine FUMARATE 100 MG TAB PO SCH (19:58)
[2017-04-14 06:00] VITALS: BP 115/58
[2017-04-14] MEDS: OMEPRAZOLE 20 MG CAP PO SCH ×2 (09:12→20:27)
[2017-04-14] MEDS: CETIRIZINE (ZyrTEC) 10 MG TAB PO SCH (09:12)
[2017-04-14] MEDS: FUROSEMIDE 40 MG TAB PO SCH (09:12)
[2017-04-14] MEDS: SENOKOT S TAB PO SCH (09:12)
[2017-04-14] MEDS: OMEGA-3 1050MG CAPSULE PO SCH (09:12)
[2017-04-14] MEDS: DONEPEZIL 5 MG TAB PO SCH (09:12)
[2017-04-14] MEDS: FOLIC ACID 1 MG TAB PO SCH (09:12)
[2017-04-14] MEDS: SERTRALINE 100 MG TAB PO SCH (09:12)
[2017-04-14] MEDS: HALOPERIDOL 2 MG TAB PO SCH ×2 (09:12→20:27)
[2017-04-14] MEDS: ASPIRIN 81 MG ENTERIC TAB PO SCH (09:12)
[2017-04-14] MEDS: VITAMIN D 1,000 INTERNATIONAL UNITS TABLET PO SCH (09:12)
[2017-04-14] MEDS: ENOXAPARIN 30 MG/0.3 ML SYR (J1650) SC SCH (09:13)
[2017-04-14] MEDS: QUEtiapine FUMARATE 100 MG TAB PO SCH (20:27)
[2017-04-15 05:18] VITALS: BP 137/74
[2017-04-15] MEDS: ENOXAPARIN 30 MG/0.3 ML SYR (J1650) SC SCH (08:31)
[2017-04-15] MEDS: SENOKOT S TAB PO SCH (08:31)
[2017-04-15] MEDS: ASPIRIN 81 MG ENTERIC TAB PO SCH (08:31)
[2017-04-15] MEDS: SERTRALINE 100 MG TAB PO SCH (08:31)
[2017-04-15] MEDS: DONEPEZIL 5 MG TAB PO SCH (08:31)
[2017-04-15] MEDS: OMEGA-3 1050MG CAPSULE PO SCH (08:31)
[2017-04-15] MEDS: FOLIC ACID 1 MG TAB PO SCH (08:31)
[2017-04-15] MEDS: VITAMIN D 1,000 INTERNATIONAL UNITS TABLET PO SCH (08:32)
[2017-04-15] MEDS: CETIRIZINE (ZyrTEC) 10 MG TAB PO SCH (08:32)
[2017-04-15] MEDS: FUROSEMIDE 40 MG TAB PO SCH (08:32)
[2017-04-15] MEDS: OMEPRAZOLE 20 MG CAP PO SCH ×2 (08:32→20:12)
[2017-04-15] MEDS: HALOPERIDOL 2 MG TAB PO SCH ×2 (08:32→20:12)
--- NOTE | 2017-04-15 15:21 | IPNPDOC ---
Text Note Date of Service The patient was seen on 04/15/17. NOTE Subjective: Patient is an 81 year old male with a PMHx of Dementia, HTN, DLP, CAD, Depression / Bipolar / Anxiety, GERD / Wilcox's esophagus and Allergic rhinitis who presented to the ER by his because patient was unable to care for himself at home. His was having difficulty caring for him. Patient was seen and examined at the bedside. Currently has no complaints. Objective: Vitals (See below) General: Lying in bed, no acute distress, comfortable, Awake and alert HEENT: NC, AT CVS: +S1S2 Lungs: Fair air entry b/l, -w/r/r Abdomen: Soft, ND, NT, +BSx4 Extremities: - Edema, - Calf tenderness Assessment and plan: 1. Dementia with behavioral issues - Is able to converse with some understanding - Not completely oriented - CT Head 03/15: Negative - Reversible causes of encephalopathy ruled out - c/w Cogentin, Donepezil, Sertraline, Seroquel, Haldol and Ativan PRN 2. GERD / Wilcox's esophagus - c/w omeprazole 3. Depression / Anxiety/ Bipolar - c/w Sertraline, Seroquel, Haldol and Ativan PRN 4. HTN - BP well controlled 5. CAD - c/w ASA and Fish oil - Will defer decision to start BB and Statin to primary care provider 6. Allergic rhinitis - c/w Cetirizine 7. DVT prophylaxis - c/w Lovenox Disposition: - PFS to establish placement; possibly Sam, XUAN VS,Ivette, I+O VS, Fishbone, I+O Vital Signs Date Time Temp Pulse Resp B/P (MAP) Pulse Ox O2 Delivery O2 Flow Rate FiO2 04/15/17 08:33 55 118/56 04/15/17 05:18 97.0 18 93 Room Air I&O- Last 24 Hours up to 6 AM 04/15/17 06:00 Intake Total 840 ml Balance 840 ml NOAH VÁZQUEZ MD Apr 15, 2017 15:21
[2017-04-15] MEDS: QUEtiapine FUMARATE 100 MG TAB PO SCH (20:12)
[2017-04-16 06:00] VITALS: BP 117/67
[2017-04-16] MEDS: FOLIC ACID 1 MG TAB PO SCH (09:07)
[2017-04-16] MEDS: DONEPEZIL 5 MG TAB PO SCH (09:07)
[2017-04-16] MEDS: SERTRALINE 100 MG TAB PO SCH (09:07)
[2017-04-16] MEDS: VITAMIN D 1,000 INTERNATIONAL UNITS TABLET PO SCH (09:08)
[2017-04-16] MEDS: ASPIRIN 81 MG ENTERIC TAB PO SCH (09:08)
[2017-04-16] MEDS: CETIRIZINE (ZyrTEC) 10 MG TAB PO SCH (09:08)
[2017-04-16] MEDS: OMEGA-3 1050MG CAPSULE PO SCH (09:08)
[2017-04-16] MEDS: FUROSEMIDE 40 MG TAB PO SCH (09:08)
[2017-04-16] MEDS: SENOKOT S TAB PO SCH (09:08)
[2017-04-16] MEDS: HALOPERIDOL 2 MG TAB PO SCH ×2 (09:08→21:04)
[2017-04-16] MEDS: ENOXAPARIN 30 MG/0.3 ML SYR (J1650) SC SCH (09:09)
[2017-04-16] MEDS: OMEPRAZOLE 20 MG CAP PO SCH ×2 (09:09→21:04)
[2017-04-16] MEDS: QUEtiapine FUMARATE 100 MG TAB PO SCH (21:04)
[2017-04-17 06:00] VITALS: BP 117/58
[2017-04-17] MEDS: FUROSEMIDE 40 MG TAB PO SCH (08:44)
[2017-04-17 08:46] VITALS: BP 110/62
[2017-04-17] MEDS: FOLIC ACID 1 MG TAB PO SCH (08:46)
[2017-04-17] MEDS: OMEGA-3 1050MG CAPSULE PO SCH (08:47)
[2017-04-17] MEDS: DONEPEZIL 5 MG TAB PO SCH (08:47)
[2017-04-17] MEDS: HALOPERIDOL 2 MG TAB PO SCH (08:47)
[2017-04-17] MEDS: CETIRIZINE (ZyrTEC) 10 MG TAB PO SCH (08:47)
[2017-04-17] MEDS: VITAMIN D 1,000 INTERNATIONAL UNITS TABLET PO SCH (08:47)
[2017-04-17] MEDS: SERTRALINE 100 MG TAB PO SCH (08:47)
[2017-04-17] MEDS: ENOXAPARIN 30 MG/0.3 ML SYR (J1650) SC SCH (08:48)
[2017-04-17] MEDS: OMEPRAZOLE 20 MG CAP PO SCH (08:48)
[2017-04-17] MEDS: SENOKOT S TAB PO SCH (08:48)
[2017-04-17] MEDS: ASPIRIN 81 MG ENTERIC TAB PO SCH (08:48)
--- NOTE | 2017-04-19 10:57 | DSES ---
DATE OF ADMISSION: 02/22/2017 DATE OF DISCHARGE: 04/17/2017 PRIMARY CARE PROVID[facility] DISCHARGE DIAGNOSES: 1. Dementia with behavioral issues. 2. Depression. 3. Bipolar disorder. 4. Gastroesophageal reflux disease (GERD) with Wilcox esophagus. 5. Hypertension. 6. Coronary artery disease. 7. Allergic rhinitis. 8. Cataracts. 9. Hyperlipidemia. 10.Vitamin D deficiency. DISCHARGE MEDICATIONS: - benztropine 1 mg by mouth every 8 hours as needed - docusate 100 mg by mouth twice a day - haloperidol 2 mg by mouth every 6 hours as needed agitation - lorazepam 2 mg intramuscular (IM) every 6 hours as needed agitation - milk of magnesia 30 mL by mouth daily as needed constipation - Fleet enema TN every three days as needed constipation - cetirizine 10 mg by mouth daily - colecalciferol 1000 units by mouth daily - diltiazem 120 mg by mouth daily - donepezil 10 mg by mouth daily - fish oil 1000 mg by mouth daily - folic acid 1 mg by mouth daily - Lasix 40 mg by mouth daily - omeprazole 20 mg by mouth twice a day - Seroquel 100 mg at bedtime - sertraline 100 mg by mouth daily HOSPITAL COURSE: The patient admitted to the hospital as the patient was brought in by , who stated she could not take care of him any longer, and he was having lots of behavioral issues, getting agitated, violent at home, verbally abusive. The patient was evaluated by psychiatry and was felt he did not have any capacity to make any medical decisions due to advanced dementia. Patient and family services (PFS) was consulted for assisting in placement in long term for long-term care. Because of his behavioral issues and intermittent problem with wandering, we had difficulty in finding a facility to accept the patient. So, the patient was placed on alternate level of care (ALC) status and remained in that status without any major events. With adjustments of his medications, his behavioral issues improved, and he was more easily managed. The patient was again referred to a different long term. Ultimately, the patient was accepted by [facility] and was discharged for long-term nursing care on 04/17/2017. PHYSICAL EXAMINATION: Vital signs: Temperature 97.4, pulse 66, respiratory rate 16, blood pressure 110/62, pulse oximetry 94% in room air. General: The patient awake, alert, oriented to name. HEENT: Normocephalic, atraumatic. Moist mucous membranes. Anicteric eyes. Chest: Clear to auscultation. Cardiovascular: S1, S2, regular. Abdomen: Soft. Extremities: No edema. LABORATORY DATA: From 04/08/2017: WBC 6.8, hemoglobin 14.8, platelets 184. Sodium 141, potassium 3.8, chloride 104, bicarbonate 30, BUN 23, creatinine 1.1, glucose 110, calcium 9.2. DISPOSITION: The patient is discharged to [facility]. DISCHARGE INSTRUCTIONS: The patient to followup with MD at the long term or primary care physician in 1-2 weeks. Diet as tolerated. Activity as tolerated. MTDD
== END 2017-04-17 11:59 | DRG 884 ==
LOC: M ED 10:06 → M ED INP 13:58 → M MSPAV 15:04 → OBSVTOIN 02-24 10:04 → M MSPAV 02-24 18:49
PROVIDERS: ADMIT Hospitalist; ATTEND Hospitalist
DX: F03.91 Unspecified dementia, unspecified severity, with behavioral disturbance (principal); K21.9 Gastro-esophageal reflux disease without esophagitis; F41.9 Anxiety disorder, unspecified; I25.10 Atherosclerotic heart disease of native coronary artery without angina pectoris; I10 Essential (primary) hypertension; K22.70 Barrett's esophagus without dysplasia; J30.9 Allergic rhinitis, unspecified; Z79.82 Long term (current) use of aspirin; Z79.899 Other long term (current) drug therapy; F31.9 Bipolar disorder, unspecified; E55.9 Vitamin D deficiency, unspecified; Z88.5 Allergy status to narcotic agent; E78.5 Hyperlipidemia, unspecified; Z74.2 Need for assistance at home and no other household member able to render care